=== PATIENT | male | born 1980 | race African-American/Black ===

== ENCOUNTER 2020-10-21 06:52 | Emergency (ER) | payer OTHER, SELFPAY ==
[2020-10-21 07:18] VITALS: BP 119/71; PULSE 86; RESP 16; TEMP 36.9; O2SAT 100; BMI 27.3
--- NOTE | 2020-10-21 07:54 | ED.URI ---
HPI - URI/Sore Throat General Chief Complaint: Upper Respiratory Symptoms Stated Complaint: strep throat Time Seen by Provider: 10/21/20 07:47 Source: patient Mode of arrival: ambulatory Limitations: no limitations History of Present Illness HPI Narrative: 40-year-old male who presents emergency department for evaluation of cough and sore throat. Patient has been sick for approximately 2 days. the patient has a cough which is productive of thick, green phlegm with occasional orange flex in the phlegm, also complaining of a sore throat. He states that he has a constant, sharp pain in his throat that is worse with coughing, has no difficulty swallowing, the pain in his throat is moderate in intensity. He states that he has a burning sensation in his chest which is worse with coughing and with breathing. He denies shortness of breath or dyspnea on exertion. He denies for myalgias or arthralgias. He states that he had a subjective fever at home. Patient states that his sore throat and cough have been very persistent was unable to work yesterday secondary to his symptoms. Related Data Previous Rx's Medication Instructions Recorded azithromycin [Zithromax Z-Lance] See Rx Instructions .ROUTE 10/21/20 .COMPLEX #6 tab Allergies Allergy/AdvReac Type Severity Reaction Status Date / Time amoxicillin [AMOXICILLIN] Allergy Unknown HIVES Verified 10/21/20 07:17 ibuprofen [IBUPROFEN] Allergy Unknown HIVES Verified 10/21/20 07:17 Review of Systems Review of Systems: Yes all other systems are reviewed and are negative Constitutional: Constitutional: Reports as per HPI Eyes: Eyes: Reports as per HPI ENT: Reports as per HPI Cardiovascular: Cardiovascular: Reports as per HPI Respiratory: Respiratory: Reports as per HPI Gastrointestinal: Gastrointestinal: Reports as per HPI Genitourinary: Genitourinary: Reports as per HPI Musculoskeletal: Musculoskeletal: Reports as per HPI Integumentary/Breasts: Skin/Breast: Reports as per HPI Neurologic: Reports as per HPI Psychiatric: Psychiatric: Reports as per HPI Allergic/Immunologic: Allergic/Immunologic: Reports as per HPI [facility] Past Medical History Attestation statement: The following information was validated with the patient. [facility] Narrative: Past medical history: Patient's born with hydrocephalus. 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 Denies tobacco use, he drinks alcohol occasionally, he denies drug use. Medical History No known health problems Social History Social History Alcohol intake: never Patient Tobacco Use Status: Never used Tobacco Use of substances other than those prescribed or required for medical reasons: No Advance Directives: No Advance Directives Information Provided: No Physical Exam Vital Signs: Vital Signs: Last Vital Signs Temp 98.5 F 10/21/20 07:18 Pulse 64 10/21/20 08:08 Resp 16 10/21/20 08:08 BP 122/78 10/21/20 08:08 Pulse Ox 100 10/21/20 08:08 Body Mass Index 27.3 Const: General: cooperative and healthy appearing Nutritional Appearance: average body habitus Orientation/consciousness: oriented to person and oriented to place Limitations: no limitations HENMT: Head: Yes normal to inspection, Yes normocephalic and Yes atraumatic Ears: external ears normal General nose exam: Normal external nose present Face and sinus: Yes normal facial exam Mouth: Normal oral and palatal mucosa present Throat: Yes tonsils normal, Yes uvula midline and Yes other ( Posterior erythema with exudates) Eyes: General: appearance normal, both eyes and all related structures Alignment and Position: alignment normal Periorbital: periorbital findings normal Eyelids: Yes eyelids normal Conjunctivae: conjunctivae normal Sclerae: sclerae normal Pupils: Equal, round and reactive pupils present Direct Ophthalmoscopy: normal light reflex Neck: Other: BP shunt tubing can be felt in the left neck, no adenopathy Neck: Yes normal visual inspection and Yes supple Thyroid: Thyroid normal Chest: Chest palpation & inspection: normal inspection of the chest and normal palpation of entire chest wall Resp: Effort & Inspection: normal respiratory effort and able to speak in complete sentences Auscultation: clear to auscultation bilaterally, no crackles, no rales and no rhonchi Cardio: Rate: regular rate Rhythm: regular rhythm Heart sounds: S1 normal heart sound present, S2 normal heart sound present and no murmurs GI: Inspection: Yes normal to inspection Palpation (GI): Soft to palpation, nontender and no guarding Auscultation: normal bowel sounds : General: Yes no CVA tenderness Back/Spine/Pelvis: Back: no CVA tenderness Cervical Spine: normal cervical lordosis Thoracic/Lumbar Spine: thoracic and lumbar spine normal to inspection Skin: General skin exam: no rashes or lesions noted Lesions: no lesions Rashes: no rashes Trauma: no lacerations or abrasions Neuro: General: oriented to person and oriented to place Cranial nerves: Yes CN's II-XII intact bilaterally and Yes Equal, round and reactive pupils present Cognition (Neuro): normal cognition Motor exam (neuro): 5/5 motor strength present throughout Extrem: Right upper extremity: normal to inspection and full ROM Psych: Appearance: grossly normal and well kempt Mental Status: mental status grossly normal Speech and movement: Normal speech and movement present Affect: normal affect Attitude: cooperative Thought process: Normal thought process present Thought content: Normal thought content present Insight: Good insight present (Psych) Judgement: Good judgement present (Psych) Course Course Course Narrative: 40-year-old male who presents emergency department for evaluation of sore throat, cough and chest pain. Vital signs were stable. Patient's presentation is consistent with acute pharyngitis and acute bronchitis. Patient will be treated with Zithromax. He was advised to take Tylenol and ibuprofen. The patient was given verbal and printed instructions prior to discharge. The patient was advised to follow-up with their PCP in 2 days and to return to the emergency department if their symptoms get worse or if they develop any new symptoms that are concerning to them . He was given a note not return until Tuesday. Discharge Plan Discharge Clinical Impression: Acute bronchitis, Acute bacterial pharyngitis Patient Disposition: Home, Self-Care Instructions: Pharyngitis (ED), Acute Bronchitis (ED) Additional Instructions: Your symptoms are consistent with a throat infection and infection of your bronchial tubes ( pharyngitis and bronchitis ). Take Zithromax Z-Lance as prescribed. Take ibuprofen 200 mg pills, 3 pills every 6 hours as needed for pain. Take Tylenol (acetaminophen) 500 mg pills, 2 pills every 4 to 6 hours as needed for pain. Follow-up with your doctor in 2 days. Please return to the emergency department if your symptoms get worse or if you develop any symptoms that are concerning to you. Prescriptions: New azithromycin [Zithromax Z-Lance] 250 mg tablet See Rx Instructions .ROUTE .COMPLEX Qty: 6 RF: 0 Stand Alone Forms: Work/School Release
[2020-10-21 08:02] VITALS: O2SAT 99
[2020-10-21 08:08] VITALS: BP 122/78; PULSE 64; RESP 16; O2SAT 100
== END 2020-10-21 08:49 | disposition home or self-care (01) ==
PROVIDERS: Emergency Provider Emergency Medicine Emergency Medical Services; PCP Internal Medicine Geriatric Medicine
DX: J20.9 Acute bronchitis, unspecified (principal); J02.8 Acute pharyngitis due to other specified organisms
CPT/HCPCS: 99283; 99285

== ENCOUNTER 2020-11-11 07:42 | Emergency (ER) | payer OTHER, SELFPAY ==
--- NOTE | ~2020-11-11 | XR_ITS ---
EXAMINATION: LUMBAR SPINE AND LEFT HIP. CLINICAL INFORMATION: Pain left hip and lumbar spine. COMPARISON: None TECHNIQUE: Lumbar spine 3 views. Left hip 2 views. FINDINGS: Left hip: There is maintained hip joint space. No bony erosive changes seen. No visible acute fracture or dislocation. The soft tissues are normal. Lumbar spine: There is normal lumbar lordosis. The vertebral heights, alignment and disc heights are normal. No visible acute fracture, dislocation or subluxation seen. The soft tissues are normal. XR/XR hip LT min 2V IMPRESSION: Unremarkable left hip exam. Unremarkable lumbar spine exam.
--- NOTE | ~2020-11-11 | XR_ITS ---
EXAMINATION: LUMBAR SPINE AND LEFT HIP. CLINICAL INFORMATION: Pain left hip and lumbar spine. COMPARISON: None TECHNIQUE: Lumbar spine 3 views. Left hip 2 views. FINDINGS: Left hip: There is maintained hip joint space. No bony erosive changes seen. No visible acute fracture or dislocation. The soft tissues are normal. Lumbar spine: There is normal lumbar lordosis. The vertebral heights, alignment and disc heights are normal. No visible acute fracture, dislocation or subluxation seen. The soft tissues are normal. XR/XR lumbar spine 2-3V IMPRESSION: Unremarkable left hip exam. Unremarkable lumbar spine exam.
--- NOTE | 2020-11-11 07:56 | ED_ITS ---
HPI - Back Pain/Injury General Chief Complaint: Extremity Problem Stated Complaint: Injury Time Seen by Provider: 11/11/20 07:56 Source: patient Mode of arrival: ambulatory Limitations: no limitations History of Present Illness HPI Narrative: left sided back pain, Patient is unsure how he injured his back. When he rolled over last night he developed sudden severe pain. MD elicited complaint: back pain Onset (ago): day(s) Timing: constant Exacerbating factors: movement Relieving factors: none Associated symptoms: denies other symptoms Related Data Previous Rx's Medication Instructions Recorded azithromycin [Zithromax Z-Lance] See Rx Instructions .ROUTE 10/21/20 .COMPLEX #6 tab cyclobenzaprine 10 mg PO TID #10 tab 11/11/20 naproxen [Naprosyn] 500 mg PO BID #20 tab 11/11/20 Allergies Allergy/AdvReac Type Severity Reaction Status Date / Time amoxicillin [AMOXICILLIN] Allergy Unknown HIVES Verified 10/21/20 07:17 ibuprofen [IBUPROFEN] Allergy Unknown HIVES Verified 10/21/20 07:17 Review of Systems Constitutional: Constitutional: Reports no additional constitutional complaints Eyes: Eyes: Reports no additional eye complaints ENT: Denies dizziness Cardiovascular: Cardiovascular: Reports no additional cardiovascular co mplaints Respiratory: Respiratory: Reports as per HPI Gastrointestinal: Gastrointestinal: Reports no additional gastrointestinal complaints Musculoskeletal: Musculoskeletal: Reports no additional musculoskeletal complaints Integumentary/Breasts: Skin/Breast: Denies rash Neurologic: Reports system reviewed and no additional complaints, except as documented, Denies dizziness and Denies Sensory deficit (Neuro) Psychiatric: Psychiatric: Denies anxiety [facility] Past Medical History Medical History No known health problems Social History Social History Alcohol intake: never Patient Tobacco Use Status: Never used Tobacco Advance Directives: Yes Advance Directives Information Provided: No Advance Directives on File: No Physical Exam Vital Signs: Vital Signs: Last Vital Signs Temp 98.0 F 11/11/20 07:58 Pulse 83 11/11/20 07:58 Resp 16 11/11/20 07:58 BP 115/79 11/11/20 07:58 Pulse Ox 98 11/11/20 07:58 Body Mass Index 32.1 Const: General: healthy appearing Nutritional Appearance: average body habitus Orientation/consciousness: oriented to person and patient oriented x3 Limitations: no limitations HENMT: Head: Yes normal to inspection Ears: external ears normal General nose exam: Normal external nose present Mouth: Normal oral and palatal mucosa present and oropharynx normal Throat: Yes posterior oropharynx normal Eyes: General: appearance normal, both eyes and all related structures Neck: Other: supple Neck: Yes normal visual inspection Chest: Chest palpation & inspection: normal inspection of the chest Resp: Auscultation: clear to auscultation bilaterally Cardio: Jugular venous distension: no JVD Rate: regular rate Rhythm: regular rhythm Heart sounds: S1 normal heart sound present and S2 normal heart sound present GI: Inspection: Yes normal to inspection Palpation (GI): Soft to palpation, nontender and No hepatosplenomegaly present Auscultation: normal bowel sounds Back/Spine/Pelvis: Other: Left SI tenderness, left iliac crest pain and insertion site Skin: General skin exam: no rashes or lesions noted Neuro: General: oriented to person and patient oriented x3 Cranial nerves: Yes CN's II-XII intact bilaterally Motor exam (neuro): 5/5 motor strength present throughout Sensory Exam: No Sensory deficit (Neuro) Extrem: General: Yes normal to inspection Psych: Appearance: grossly normal Course Reevaluation(s) Reevaluation #1: xrays are negative will treat for muscle spasm and strain Time: 09:05 [facility] - Back Pain/Injury Imaging Data hip: Radiologist's impression: IMPRESSION: Unremarkable left hip exam. Unremarkable lumbar spine exam. Discharge Plan Discharge Clinical Impression: Back strain Qualifiers: Encounter type: initial encounter Qualified Code(s): S39.012A - Strain of muscle, fascia and tendon of lower back, initial encounter Hip strain Qualifiers: Encounter type: initial encounter Laterality: left Qualified Code(s): S76.012A - Strain of muscle, fascia and tendon of left hip, initial encounter Patient Disposition: Home, Self-Care Instructions: Low Back Strain (ED) Prescriptions: New cyclobenzaprine 10 mg tablet 10 mg PO TID Qty: 10 RF: 0 naproxen [Naprosyn] 500 mg tablet 500 mg PO BID Qty: 20 RF: 0 No Action azithromycin [Zithromax Z-Lance] 250 mg tablet See Rx Instructions .ROUTE .COMPLEX Qty: 6 RF: 0 Referrals: Physician,None [Primary Care Provider] - 1 week Stand Alone Forms: Work/School Release
[2020-11-11 07:58] VITALS: BP 115/79; PULSE 83; RESP 16; TEMP 36.7; O2SAT 98; BMI 32.1
[2020-11-11] MEDS: Ketorolac Tromethamine 60 MG/2 ML VIAL IM (08:49)
[2020-11-11] MEDS: Cyclobenzaprine HCl 10 MG TABLET PO (08:50)
== END 2020-11-11 10:05 | disposition home or self-care (01) ==
PROVIDERS: Emergency Provider Emergency Medicine
DX: S39.012A Strain of muscle, fascia and tendon of lower back, initial encounter (principal); S76.012A Strain of muscle, fascia and tendon of left hip, initial encounter; X58.XXXA Exposure to other specified factors, initial encounter; Y93.9 Activity, unspecified; Y92.9 Unspecified place or not applicable; Y99.9 Unspecified external cause status
CPT/HCPCS: 72100; 73502; 96372; 99283; 99284; J1885

== ENCOUNTER 2021-01-05 13:07 | Emergency (ER) | payer OTHER, SELFPAY ==
--- NOTE | ~2021-01-05 | CT_ITS ---
EXAMINATION: CT SOFT TISSUE NECK WITHOUT CONTRAST CLINICAL INFORMATION: Neck pain. Shunt. COMPARISON: None TECHNIQUE: Helical imaging was performed in the axial plane with generation of coronal and sagittal reformatted images. This CT examination was performed using dose optimization techniques as appropriate, variously including the following: *Automated exposure control *Adjustment of mA and/or kV according to patient size (this includes techniques or standardized protocols for targeted exams where dose is matched to indication/reason for exam; i.e. extremities or head) *Use of iterative reconstruction technique DLP: 534 mGy-cm FINDINGS: There is a shunt seen in the right upper anterior chest, lateral neck and adjacent to the right side of the skull. The shunt appears interrupted or broken in multiple places. No fluid collection adjacent to the catheter is seen. Visualized intracranial structures are unremarkable. The shunt catheter in the brain is not seen. Orbits are normal appearing. There is membranous soft tissue thickening in the floor of the right maxillary sinus. There is a small polyp or cyst in the left maxillary sinus. There is prominent soft tissue seen in the naso and oropharynx. Discrete mass is not seen and this probably represents prominent adenoidal soft tissue. The epiglottis and vallecula are normal. The larynx is normal. The salivary glands are normal. The thyroid gland is normal. There is shotty cervical lymphadenopathy. There is biapical pleural thickening. Review of bone windows is unremarkable. CT/CT soft tissue neck wo con IMPRESSION: Broken shunt catheter seen in the right side of the neck and chest. No fluid collection around the catheters seen. Prominent soft tissue in the naso and oropharynx probably representing prominent adenoidal soft tissue.
[2021-01-05 14:26] VITALS: BP 147/111; PULSE 114; RESP 16; TEMP 36.1; O2SAT 98; BMI 27.3
--- NOTE | 2021-01-05 15:19 | ED_ITS ---
HPI - General Adult General Chief complaint: General Medical <STEPHANE Downs - Last Filed: 01/05/21 15:37> Stated complaint: HEMMRHOIDS <STEPHANE Downs Last Filed: 01/05/21 15:37> Time Seen by Provider: 01/05/21 15:19 <STEPHANE Downs - Last Filed: 01/05/21 15:37> Source: patient <STEPHANE Molina - Last Filed: 01/06/21 00:24> Mode of arrival: ambulatory <STEPHANE Molina - Last Filed: 01/06/21 00:24> History of Present Illness HPI narrative: 40-year-old male with a past medical history of GLUE MIXER shunt, hemorrhoids, presenting to the ED complaining of inflamed/painful hemorrhoid x2 days. States hemorrhoid popped now with bleeding when wiping/filling toilet bowl. Admits to similar symptoms in the past. Denies taking anticoagulation. Also requesting GLUE MIXER evaluation, reports believes shunt is broken x2 months. States no longer uses shunt, had a subsequent procedure after initial shunt placement which no longer requires shunt use. Denies headache, visual changes, nausea, vomiting, weakness, abdominal pain, lightheadedness/dizziness <STEPHANE Molina Last Filed: 01/06/21 00:24> Onset (ago): day(s) <STEPHANE Molina - Last Filed: 01/06/21 00:24> Related Data Home medications: Previous Rx's Medication Instructions Recorded azithromycin 250 mg tablet See Rx Instructions .ROUTE 10/21/20 (Zithromax Z-Lance) .COMPLEX #6 tab cyclobenzaprine 10 mg tablet 10 mg PO TID #10 tab 11/11/20 naproxen 500 mg tablet (Naprosyn) 500 mg PO BID #20 tab 11/11/20 hydrocortisone acetate 25 mg 25 mg [place] BEDTIME #12 ea 01/05/21 rectal suppository lidocaine 5 % topical cream 1 appl TOPICAL BID PRN #30 g 01/05/21 (Hemorrhoidal Relief) <STEPHANE Downs Last Filed: 01/05/21 15:37> Allergies/adverse reactions: Allergies Allergy/AdvReac Type Severity Reaction Status Date / Time amoxicillin [AMOXICILLIN] Allergy Unknown HIVES Verified 01/05/21 17:57 ibuprofen [IBUPROFEN] Allergy Unknown HIVES Verified 01/05/21 17:57 <STEPHANE Downs - Last Filed: 01/05/21 15:37> Review of Systems Review of Systems: Constitutional: No Fever, No Fatigue, No Malaise ENT/Mouth: No Hearing loss, No sore throat, No Rhinorrhea Eyes: No Eye Pain, No Swelling, No Vision Changes Cardiovascular: No Chest Pain, No SOB Respiratory: No Cough, No Dyspnea Gastrointestinal: No Nausea, No Vomiting, No Diarrhea, No Constipation, No Abdominal pain, +hemmorrhoid, +blood when wiping Genitourinary: No irregular bleeding, No Dysuria, No Hematuria, No Urinary Incontinence, No Flank Pain Musculoskeletal: +neck pain, No Myalgias, No Joint Swelling Skin: No Skin Lesions, No rash Neuro: No Weakness, No Numbness, No Paresthesias, No Loss of Consciousness, No Dizziness, No Headache <STEPHANE Molina - Last Filed: 01/06/21 00:24> Yes all other systems are reviewed and are negative <STEPHANE Molina - Last Filed: 01/06/21 00:24> Neurologic: Denies Abnormal speech present <STEPHANE Molina - Last Filed: 01/06/21 00:24> [facility] Past Medical History Attestation statement: The following information was validated with the patient. <STEPHANE Molina - Last Filed: 01/06/21 00:24> Medical History: Medical History No known health problems <STEPHANE Downs - Last Filed: 01/05/21 15:37> Social History Social History: Social History Alcohol intake: never Patient Tobacco Use Status: Never used Tobacco Advance Directives: Yes Advance Directives Information Provided: No Advance Directives on File: No <STEPHANE Downs Last Filed: 01/05/21 15:37> Physical Exam Vital Signs: Vital Signs: Last Vital Signs Temp 98 F 01/05/21 19:36 Pulse 75 01/05/21 19:36 Resp 16 01/05/21 19:36 BP 124/84 01/05/21 19:36 Pulse Ox 95 01/05/21 19:36 Body Mass Index 27.3 <STEPHANE Downs - Last Filed: 01/05/21 15:37> Vital Signs: Last Vital Signs Temp 98 F 01/05/21 19:36 Pulse 75 01/05/21 19:36 Resp 16 01/05/21 19:36 BP 124/84 01/05/21 19:36 Pulse Ox 95 01/05/21 19:36 Body Mass Index 27.3 <STEPHANE Molina - Last Filed: 01/06/21 00:24> Const: General: cooperative, healthy appearing, no acute distress, alert and awake <STEPHANE Molina - Last Filed: 01/06/21 00:24> Orientation/consciousness: patient oriented x3 <STEPHANE Molina - Last Filed: 01/06/21 00:24> Limitations: no limitations <STEPHANE Molina - Last Filed: 01/06/21 00:24> HENMT: Head: Yes normal to inspection <STEPHANE Molina - Last Filed: 01/06/21 00:24> Ears: hearing grossly normal bilaterally <STEPHANE Molina - Last Filed: 01/06/21 00:24> General nose exam: Normal external nose present <STEPHANE Molina - Last Filed: 01/06/21 00:24> Face and sinus: Yes normal facial exam <STEPHANE Molina - Last Filed: 01/06/21 00:24> Throat: Yes posterior oropharynx normal, Yes tonsils normal and Yes uvula midline <STEPHANE Molina - Last Filed: 01/06/21 00:24> Eyes: General: appearance normal, both eyes and all related structures <STEPHANE Molina - Last Filed: 01/06/21 00:24> Pupils: Equal, round and reactive pupils present <STEPHANE Molina - Last Filed: 01/06/21 00:24> EOM: EOMs intact bilaterally <STEPHANE Molina - Last Filed: 01/06/21 00:24> Neck: Other: palpable broken shunt noted to R neck. No overlying infection/cellulitis <STEPHANE Molina - Last Filed: 01/06/21:24> Neck: Yes normal visual inspection <Bridgette Campbell [place] - Last Filed: 01/06/21 00:24> Resp: Effort & Inspection: normal respiratory effort and no respiratory distress <Bridgette [place] - Last Filed: 01/06/21 00:24> Cardio: Rate: regular rate <Bridgette [place] - Last Filed: 01/06/21 00:24> Heart sounds: S1 normal heart sound present and S2 normal heart sound present <Bridgette [place] - Last Filed: 01/06/21:24> GI: Inspection: Yes normal to inspection <Bridgette [place] - Last Filed: 01/06/21:24> Palpation (GI): Soft to palpation, nontender, no guarding and not rigid <Bridgette [place] - Last Filed: 01/06/21:24> : Other: + red inflamed/prolapsed hemorrhoid noted. No evidence of thro mbosis. No evidence of cellulitis. Tender to palpation. <Bridgette [place] - Last Filed: 01/06/21:24> Skin: Rashes: no rashes <Bridgette [place] - Last Filed: 01/06/21:24> Wounds: no wounds <Bridgette [place] - Last Filed: 01/06/21:24> Neuro: General: patient oriented x3, gait normal, tone normal, moves all extremities, no focal motor deficits and CN's II-XI intact bilaterally <Bridgette Campbell [facility] Last Filed: 01/06/21 00:24> Cranial nerves: Yes CN's II-XII intact bilaterally and Yes Equal, round and reactive pupils present <Bridgette [place] - Last Filed: 01/06/21 00:24> Cognition (Neuro): normal cognition <Bridgette [place] - Last Filed: 01/06/21:24> Speech: No Abnormal speech present <Bridgette [place] - Last Filed: 01/06/21:24> Gait exam (Neuro): Normal gait present <Bridgette [place] - Last Filed: 01/06/21 00:24> Motor exam (neuro): 5/5 motor strength present throughout <STEPHANE Molina Last Filed: 01/06/21 00:24> Extrem: General: Yes normal to inspection <STEPHANE Molina Last Filed: 01/06/21 00:24> Course Course Course Narrative: 15pm - 40-year-old male presenting to the ED with possible hemorrhoids he reports that he had a lot of bloody discharge this morning and wants surgery. He also reports that he has a shunt to the right side of his neck and has been having pain from it and wants further evaluation treatment about this. Therefore patient was sent back to the waiting room for further evaluation and treatment to Emergency [facility] care. Soft tissue neck CT scan ordered at this time. <STEPHANE Downs Last Filed: 01/05/21 15:37> Reevaluation(s) Reevaluation #1: CT soft tissue neck wo con IMPRESSION: Broken shunt catheter seen in the right side of the neck and chest. No fluid collection around the catheters seen. Prominent soft tissue in the naso and oropharynx probably representing prominent adenoidal soft tissue. >> case discussed with Dr. Brizuela. Patient no longer needs shunt per patient sx been going on for 2 mos,, likely chronic, no need for neurosurgery eval at this time. No focal neuro deficits. Plan to follow-up with neurosurgery outpatient <STEPHANE Molina Last Filed: 01/06/21 00:24> Medical Decision Making MDM Narrative Medical decision making narrative: 40-year-old male with a past medical history of GLUE MIXER shunt, hemorrhoids, presenting to the ED complaining of inflamed/painful hemorrhoid x2 days. Also requesting GLUE MIXER shunt evaluation. On exam initially hypertensive, tachycardic likely from pain. Physical exam as above. No focal neuro deficits. No evidence of rectal bleeding, appreciable prolapsed hemorrhoid without evidence of thrombosis. Discussed with patient he is to follow-up with general surgery likely for hemorrhoidectomy. Also discussed with patient needs to follow-up with neuro surgery outpatient, this is likely chronic & patient no longer uses shunt <STEPHANE Molina Last Filed: 01/06/21 00:24> Discharge Plan Discharge Clinical Impression: Hemorrhoid prolapse, Mechanical complication of ventricular intracranial shunt <STEPHANE Downs Last Filed: 01/05/21 15:37> Patient Disposition: Home, Self-Care <STEPHANE Downs - Last Filed: 01/05/21 15:37> Instructions: Hemorrhoids (ED), Hemorrhoidectomy (DC) <STEPHANE Downs - Last Filed: 01/05/21 15:37> Additional Instructions: Your hemorrhoid is prolapse/inflamed. Lidocaine and hydrocortisone will help with inflammation/pain, apply as directed You need to follow-up with general surgery for your hemorrhoid Your shunt appears broken in her neck, you need to follow-up with your neurosurgeon. Also follow-up with [facility] neurosurgery If her symptoms persist or worsen, if constant worsening bleeding, develops abdominal pain, headache, weakness return to the ED <STEPHANE Downs - Last Filed: 01/05/21 15:37> Prescriptions: New lidocaine [Hemorrhoidal Relief] 5 % cream 1 appl topical BID PRN (Reason: pain) Qty: 30 RF: 0 hydrocortisone acetate 25 mg suppository 25 mg [place] BEDTIME Qty: 12 RF: 0 No Action azithromycin [Zithromax Z-Lance] 250 mg tablet See Rx Instructions .ROUTE .COMPLEX Qty: 6 RF: 0 cyclobenzaprine 10 mg tablet 10 mg PO TID Qty: 10 RF: 0 naproxen [Naprosyn] 500 mg tablet 500 mg PO BID Qty: 20 RF: 0 <STEPHANE Downs - Last Filed: 01/05/21 15:37> Referrals: Anil Macdonald MD [Physician] - 3 days (For your broken shunt. Call to make appointment) Cam Arguello MD [Physician] - 2 days (For hemorrhoids. General surgery) <STEPHANE Downs - Last Filed: 01/05/21 15:37> Stand Alone Forms: Work/School Release <STEPHANE Downs - Last Filed: 01/05/21 15:37> Interventions: ED Discharge Assessment Last Done: 01/05/21 19:43 <STEPHANE Downs - Last Filed: 01/05/21 15:37> Discharge Date/Time: 01/05/21 19:45 <STEPHANE Downs - Last Filed: 01/05/21 15:37>
--- NOTE | 2021-01-05 17:58 | PC.NURSE ---
pt states hemorrhoids bleeding. c/o pain in rectal area. hx hemorrhoids. also has concern about shunt. ct was done.
[2021-01-05 19:36] VITALS: BP 124/84; PULSE 75; RESP 16; TEMP 36.6; O2SAT 95
== END 2021-01-05 19:45 | disposition home or self-care (01) ==
PROVIDERS: Emergency Provider Emergency Medicine
DX: K64.8 Other hemorrhoids (principal); M54.2 Cervicalgia; Z79.899 Other long term (current) drug therapy
CPT/HCPCS: 70490; 99284

== ENCOUNTER → 2021-01-14 14:44 | Outpatient (BNVA) | payer OTHER, SELFPAY | PROVIDERS: Visit Provider Surgery | DX: K64.9 Unspecified hemorrhoids (principal) | CPT/HCPCS: 46600; 99202 ==

== ENCOUNTER 2021-02-10 08:27 | Day surgery (SDC) | payer OTHER, SELFPAY ==
[2021-02-04 14:40] VITALS: BMI 28.4
--- NOTE | 2021-02-09 10:35 | HO.ANESPROP2 ---
Documented by User: Tash Mario NP 02/09/21 10:36 HPI - Anesthesia Eval Consult details Narrative: 41yo M for EUA, Hemorrhoidectomy PMFSH Active Problems Active Problems: All Active Problems (Updated 02/04/21 @ 14:39 by Mckenna Blanca RN) Bleeding hemorrhoids (Acute) Past Medical History Medical History Bleeding hemorrhoids History of MRSA infection Hydrocephalus Surgical History Surgical History History of creation of ventriculoperitoneal shunt Social History Social History Are you a primary pet care worker to a significant other at home: No Do you presently have visiting nurse or other home services: No Alcohol intake: never Patient Tobacco Use Status: Current someday Tobacco user Tobacco use type: Cigarette Cigarettes Per Day: 5 Use of substances other than those prescribed or required for medical reasons: No Have you been hit, kicked, punched, or otherwise hurt by someone within the past year? If so, by whom?: No Are you DNR?: No Advance Directives: No Advance Directives Information Provided: Yes (informational brochure mailed) Advance Directives on File: No Recently lost weight without trying: No Eating poorly because of decreased appetite: No Nutrition Risks: No Nutritional Risk Poor oral hygiene: No Meds Allergies Allergy/AdvReac Type Severity Reaction Status Date / Time amoxicillin [AMOXICILLIN] Allergy Intermediate HIVES Verified 02/10/21 09:05 ibuprofen [IBUPROFEN] Allergy Intermediate HIVES Verified 02/10/21 09:05 Exam Exam Date and Time: February 09, 2021 1035 Height,Weight and Vital Signs: Height 5 ft 1 in Weight 68.2 kg Assessment and Plan Assessment Anesthesia Assessment: Chart Reviewed Documented by User: Amairani Riley MD 02/10/21 10:43 PMFSH Past Medical History Medical History Bleeding hemorrhoids History of MRSA infection Hydrocephalus Surgical History Surgical History History of creation of ventriculoperitoneal shunt History of Problems with Anesthesia: No Social History Social History Are you a primary pet care worker to a significant other at home: No Do you presently have visiting nurse or other home services: No Alcohol intake: never Patient Tobacco Use Status: Current someday Tobacco user Tobacco use type: Cigarette Cigarettes Per Day: 5 Use of substances other than those prescribed or required for medical reasons: No Have you been hit, kicked, punched, or otherwise hurt by someone within the past year? If so, by whom?: No Are you DNR?: No Advance Directives: No Advance Directives Information Provided: Yes (informational brochure mailed) Advance Directives on File: No Recently lost weight without trying: No Eating poorly because of decreased appetite: No Nutrition Risks: No Nutritional Risk Poor oral hygiene: No Meds Allergies Allergy/AdvReac Type Severity Reaction Status Date / Time amoxicillin [AMOXICILLIN] Allergy Intermediate HIVES Verified 02/10/21 09:05 ibuprofen [IBUPROFEN] Allergy Intermediate HIVES Verified 02/10/21 09:05 Exam Airway Mallampati Class: II TM Dist: >3cm Neck ROM: Full Heart: RRR Lungs: CTA Assessment and Plan Assessment Anesthesia Assessment: Anesthesia Plan Discussed Final Anesthetic Review History of Problems with Anesthesia: No NPO: Yes ASA Class: II Final Preanesthetic Review: Meds/Allgs Chart Reviewed, Consent Obtained/Reviewed and Anes Risks/Benef Reviewed Patient Risk: Low Procedure Risk: Intermediate Anesthetic Plan Anesthetic Plan: GA Disposition: Standard PACU
[2021-02-10] VITALS (19 sets, daily range): BP systolic 113–146; BP diastolic 60–101; PULSE 68–93; RESP 11–18; TEMP 36.1–36.6; O2SAT 89–100
[2021-02-10] MEDS: Lactated Ringers 1,000 ML 100 ML IVCONT (09:25)
--- NOTE | 2021-02-10 09:53 | MHC.SHP ---
Pre-Procedural Eval Section A Date of Service: 02/10/21 Section B Chief Complaint: Bleeding hemorrhoids Allergies: Allergies Allergy/AdvReac Type Severity Reaction Status Date / Time amoxicillin [AMOXICILLIN] Allergy Intermediate HIVES Verified 02/10/21 09:05 ibuprofen [IBUPROFEN] Allergy Intermediate HIVES Verified 02/10/21 09:05 Plan I have reviewed the history and physical and performed a pertinent physical examination on my patient. No changes have occurred unless specified.
--- NOTE | 2021-02-10 10:51 | W.PM.OPN ---
Operative Note Operative Note Date of Service: 02/10/21 Narrative: Preop diagnosis: Bleeding hemorrhoids Postop diagnosis: Bleeding hemorrhoids, internal and external Procedure: Exam under anesthesia, hemorrhoidectomy x1 column Surgeon: Cam Arguello MD Patient is a 41-year-old male was seen in the office because of chronic problems with bleeding hemorrhoids. He said that this had been severe the past few months. Examination in the office revealed what appeared to be very inflamed, erythematous, moderate size hemorrhoidal column involving the distal anoderm all the way to the dentate line. This appeared to be the likely source of his bleeding He understood technique of hemorrhoidectomy as well as the risks, benefits, and alternatives. He was brought to the operating room placed in prone enrique-knife position under general anesthesia via endotracheal tube. The buttocks were retracted with wide tape laterally. The perianal area was prepped and draped in the usual sterile fashion. A surgical time-out was done. The patient received Cefotan 2 g IV preoperatively. Examination of the anal orifice revealed what appeared to be a prolapsing hemorrhoidal column on the left side, very erythematous looking and appeared to bleed easily I inserted the Mino Acevedo retractor and examined the anal canal circumferentially. Again this hemorrhoidal column was noted on the left side, extending from just proximal to the dentate line all the way to the distal anoderm. There were no other lesions. There was no fissure. There was no induration in the anal canal. I applied a Weir grasper at this hemorrhoidal column to retract this. I made a wwahwe-dr-zmwki stitch at the pedicle using chromic 3-0. I made an incision around this hemorrhoidal column to the perianal skin using blade 15. I excised this hemorrhoidal column above the plane of the sphincters along this incision using Metzenbaum scissors. This specimen was sentfor pathology. I closed this incision with a running chromic 3-0 stitch. Additional hemostatic [id number] sutures were placed. We observed for hemostasis. Once hemostasis was ensured, I proceeded to then infiltrate the perianal area with Marcaine 0.5% for postop analgesia. The procedure was then completed The patient tolerated procedure well. There were no complications noted. Initial and final counts of sponges and instruments were correct. Estimated blood loss about 20 cc. The patient was extubated without difficulty and transferred to recovery room with stable vital signs.
--- NOTE | 2021-02-10 10:56 | PM.OP ---
Brief Operative Note Date of Service: 02/10/21 Pre-op diagnosis: Bleeding hemorrhoids Post-op diagnosis: same Procedure: Exam under anesthesia, hemorrhoidectomy Surgeon: Cam Arguello MD Anesthesia: GETA Was an Cinder Crane Operator used for this Procedure?: No Estimated blood loss (mL): 20 Pathology: other (Hemorrhoids) Condition: stable Disposition: PACU
[2021-02-10] MEDS: fentaNYL citrate/PF 100 MCG/2 ML VIAL 50 MCG IVPUSH (11:19)
[2021-02-10] MEDS: oxyCODONE HCl Immed Release 5 MG TABLET 10 MG PO (11:22)
[2021-02-10] MEDS: fentaNYL citrate/PF 100 MCG/2 ML VIAL 25 MCG IVPUSH (12:18)
== END 2021-02-10 14:50 | disposition home or self-care (01) ==
PROVIDERS: Visit Provider Surgery
PROC: (CPT 46255; principal; 2021-02-10 10:00)
DX: K64.8 Other hemorrhoids (principal); K64.4 Residual hemorrhoidal skin tags; K62.89 Other specified diseases of anus and rectum; Z79.899 Other long term (current) drug therapy; Z88.0 Allergy status to penicillin; Z88.8 Allergy status to other drugs, medicaments and biological substances
CPT/HCPCS: 46255; 88304; J1100; J2250; J2405; J3010

== ENCOUNTER → 2021-03-10 15:40 | Outpatient (BNVA) | payer OTHER, SELFPAY | PROVIDERS: Visit Provider Surgery | DX: Z48.815 Encounter for surgical aftercare following surgery on the digestive system (principal); Z87.19 Personal history of other diseases of the digestive system | CPT/HCPCS: 99212 ==

== ENCOUNTER 2021-06-16 15:12 | Emergency (ER) | payer OTHER, SELFPAY ==
[2021-06-16 17:04] VITALS: BP 173/112; PULSE 110; RESP 18; TEMP 36.8; O2SAT 97; BMI 24.5
--- NOTE | 2021-06-16 20:08 | ED.GENADULT ---
HPI - General Adult General Chief complaint: General Medical Stated complaint: Neck issues Time Seen by Provider: 06/16/21 17:39 Source: patient Mode of arrival: ambulatory Limitations: no limitations History of Present Illness HPI narrative: 41-year-old male who presents emergency department for evaluation of pain in his right neck. Patient states that he was born with hydrocephalus and had a SUPERVISOR LIQU[employer] shunt placed at [facility]. He states that he had multiple revisions the SUPERVIS[employer] shunt. He states that 20 years ago he had some type of procedure was told that he no longer needed the BP shunt. The patient states that in December of 2020 he noted a destruction of the SUPERVIS[employer] shunt tubing in his right neck. He was seen here in the emergency department on 01/05/[address] scan soft tissue of the neck and the following findings were noted regarding the SUPERVISOR [employer] YE[employer] shunt tube: There is a shunt seen in the right upper anterior chest, lateral neck and adjacent to the right side of the skull. The shunt appears interrupted or broken in multiple places. No fluid collection adjacent to the catheter is seen. The patient was referred to [facility] neuro surgery however he never kept a follow-up appointment. The patient states that over the past month he has been having pain in the right side of his neck. He states that the pain is intermittent. The pain mainly occurs after this heavy boxes at work. He states the pain is intermittent, sharp pain which is moderate to severe in intensity, worse with movement. He denied headache, lightheadedness, dizziness, nausea, vomiting, numbness or weakness associated with his neck pain. The patient states he has not been able to work over the past 3-4 day secondary to his neck pain. MD complaint: Right-sided neck pain Onset (ago): month(s) (1) Location: right (Neck) Radiation: non-radiation Severity: severe Severity scale (1-10): 8 Quality: aching and sharp Pain Consistency: intermittent Relieving factors: none Exacerbating factors: other (Lifting boxes at work) Associated symptoms: denies other symptoms Treatments prior to arrival: none Related Data Previous Rx's Medication Instructions Recorded hydrocortisone acetate 25 mg 25 mg [place] BEDTIME #12 ea 01/05/21 rectal suppository lidocaine 5 % topical cream 1 appl TOPICAL BID PRN #30 g 01/05/21 (Hemorrhoidal Relief) ibuprofen 600 mg tablet 600 mg PO Q6H PRN #30 tab 02/10/21 oxycodone-acetaminophen 5 mg-325 1 tab PO Q4-6H PRN #30 tab 02/10/21 mg tablet (Percocet) docusate sodium 100 mg capsule 100 mg PO BID #60 cap 02/11/21 (Colace) acetaminophen 500 mg tablet 1,000 mg PO Q6H PRN #30 tab 06/16/21 (Acetaminophen Extra Strength) cyclobenzaprine 10 mg tablet 10 mg PO TID PRN #20 tab 06/16/21 Allergies Allergy/AdvReac Type Severity Reaction Status Date / Time amoxicillin [AMOXICILLIN] Allergy Intermediate HIVES Verified 03/10/21 15:48 ibuprofen [IBUPROFEN] Allergy Intermediate HIVES Verified 03/10/21 15:48 Review of Systems Review of Systems: Yes all other systems are reviewed and are negative [facility] Past Medical History Medical History Bleeding hemorrhoids History of MRSA infection Hydrocephalus Hydrocephalus Surgical History History of creation of ventriculoperitoneal shunt History of hemorrhoidectomy Social History Social History Are you a primary medicare specialist to a significant other at home: No Do you presently have visiting nurse or other home services: No Alcohol intake: never Patient Tobacco Use Status: Current someday Tobacco user Tobacco use type: Cigarette Cigarettes Per Day: 5 Advance Directives: No Advance Directives Information Provided: No Physical Exam ED Vital Signs: Vital Signs - 24 hr 06/16/21 17:04 Temperature 98.2 F Pulse Rate 110 H Respiratory Rate 18 Blood Pressure 173/112 H Pulse Oximetry 97 BMI result Body Mass Index 24.5 Const General: cooperative and no acute distress Orientation/consciousness: oriented to person and oriented to place Limitations: no limitations HENMT Head: Yes normal to inspection, Yes normocephalic and Yes atraumatic Ears: external ears normal General nose exam: Normal external nose present Face and sinus: Yes normal facial exam Mouth: Normal oral and palatal mucosa present Throat: Yes posterior oropharynx normal Eyes General: appearance normal, both eyes and all related structures Pupils: Equal, round and reactive pupils present Neck Other: The patient does have a SUPERVISOR LIQU[employer] YE[employer] shunt noted on the right side of his neck, there is a 2 cm section which appears to be collapsed and then after this collapse section the tube is again palpable. He also has tenderness palpation of his trapezius muscles and sternocleidomastoid muscles on the right side of his neck with no spasm. Has full range of motion of his neck with no limitations. There is no mask, erythema or increased warmth noted over the SUPERVISOR LIQU[employer] YE[employer] shunt. Chest Chest palpation & inspection: normal inspection of the chest and normal palpation of entire chest wall Resp Effort & Inspection: normal respiratory effort and able to speak in complete sentences Auscultation: clear to auscultation bilaterally Cardio Rate: regular rate Rhythm: regular rhythm Heart sounds: S1 normal heart sound present, S2 normal heart sound present and no murmurs GI Inspection: Yes normal to inspection Palpation (GI): Soft to palpation, nontender and no guarding Auscultation: normal bowel sounds General: Yes no CVA tenderness Back/Spine/Pelvis Back: no CVA tenderness Skin General skin exam: no rashes or lesions noted Neuro General: oriented to person and oriented to place Cranial nerves: Yes CN's II-XII intact bilaterally and Yes Equal, round and reactive pupils present Cognition (Neuro): normal cognition Motor exam (neuro): 5/5 motor strength present throughout Extrem General: Yes normal to inspection Psych Appearance: grossly normal Speech and movement: Normal speech and movement present Affect: normal affect Attitude: cooperative Thought process: Normal thought process present Thought content: Normal thought content present Course Course Course Narrative: 41-year-old male who presents emergency department for evaluation of intermittent right-sided neck pain x1 month. He was also seen here on 01/05/2021 with similar complaint and was noted to have multiple breaks in his SUPERVISOR LIQU[employer] YE[employer] shunt on a CT scan of the soft tissue of the neck. The patient was supposed to follow up with [facility] neuro surgery but he never kept this follow-up appointment. The patient does state that 20 years ago he had some type of procedure and was told that he no longer needed the SUPERVIS[employer] shunt but he cannot give me any more details about what this procedure entailed. Patient's examination does reveal tenderness with palpation of the muscles of the right side of his neck and at this time I believe his pain is not related to this fraction of the SUPERVIS[employer] shunt. The patient is not having any concerning symptoms like headache, lightheadedness, dizziness, numbness or weakness. The patient will be treated with Tylenol and Flexeril. He was given the number to the neurosurgery clinic at [facility] advised to contact them for a follow-up appointment to determine if he needs the SUPERVISOR LIQU[employer] YE[employer] shunt your any further treatment. He was also advised to follow-up with his PCP. He was given a work note as well. Discharge Plan Discharge Clinical Impression: Acute neck pain, S/P SUPERVISOR LIQUID YE[employer] shunt Patient Disposition: Home, Self-Care Instructions: Acute Neck Pain (ED) Additional Instructions: At this time, I do not think that your neck pain is related to the broken SUPERVISOR LIQU[employer] YE[employer] shunt in the right side of her neck and is probably related to muscle strain from lifting at work. It is important that you follow-up with the neurosurgeons at [facility] to determine if you need any revision of your shunt. The following number is to the neurosurgery clinic at [facility], . Call them tomorrow to make a follow-up appointment to evaluate your shunt. The shunt is broken, please see the findings from CT soft tissue of the neck report below which was done December of 2020. Take Tylenol (acetaminophen) 500 mg pills, 2 pills ever 4 to 6 hours as needed for pain. Take Flexeril (cyclobenzaprine) 10 mg pills, 1 pill every 6-8 hours as needed for pain or spasm. This medication will make you sleepy. Do not drive or work while taking this medication. Please see work note You had a CT scan of the soft tissue of your neck on 01/05/2021. Below are the findings from the radiology report. The report does confirm that the shunt in the right side of your neck is broken into multiple pieces. There is a shunt seen in the right upper anterior chest, lateral neck and adjacent to the right side of the skull. The shunt appears interrupted or broken in multiple places. No fluid collection adjacent to the catheter is seen. Please see the work note. Prescriptions: New cyclobenzaprine 10 mg tablet 10 mg PO TID PRN (Reason: muscle pain or spasm) Qty: 20 0RF acetaminophen [Acetaminophen Extra Strength] 500 mg tablet 1,000 mg PO Q6H PRN (Reason: pain) Qty: 30 0RF No Action docusate sodium [Colace] 100 mg capsule 100 mg PO BID Qty: 60 2RF lidocaine [Hemorrhoidal Relief] 5 % cream 1 appl topical BID PRN (Reason: pain) Qty: 30 0RF hydrocortisone acetate 25 mg suppository 25 mg NM BEDTIME Qty: 12 0RF ibuprofen 600 mg tablet 600 mg PO Q6H PRN (Reason: pain) Qty: 30 0RF oxycodone-acetaminophen [Percocet] 5-325 mg tablet 1 tab PO Q4-6H PRN (Reason: pain) Qty: 30 0RF Stand Alone Forms: Work/School Release
[2021-06-16 20:47] VITALS: BP 126/80; PULSE 80; RESP 16; O2SAT 97
== END 2021-06-16 20:48 | disposition home or self-care (01) ==
PROVIDERS: Emergency Provider Emergency Medicine Emergency Medical Services; PCP Internal Medicine Geriatric Medicine
DX: M54.2 Cervicalgia (principal); G91.9 Hydrocephalus, unspecified; Z98.2 Presence of cerebrospinal fluid drainage device; F17.200 Nicotine dependence, unspecified, uncomplicated
CPT/HCPCS: 99283; 99284

== ENCOUNTER 2021-07-12 02:02 | Emergency (ER) | payer OTHER, SELFPAY ==
--- NOTE | ~2021-07-12 | XR_ITS ---
EXAMINATION: XR HIP, LEFT CLINICAL INFORMATION: Fall. COMPARISON: None TECHNIQUE: Two views of the left hip. Frontal view of the pelvis. FINDINGS: No fracture or dislocation. The hips are well aligned. Joint spaces are maintained. The pelvic rim is intact. Normal bowel gas pattern. XR/XR hip LT min 2V IMPRESSION: Normal left hip.
[2021-07-12 02:12] VITALS: BP 155/100; PULSE 98; O2SAT 100
--- NOTE | 2021-07-12 02:21 | ED.BACK ---
HPI - Back Pain/Injury General Chief Complaint: Fall Stated Complaint: lower back pain Time Seen by Provider: 07/12/21 02:20 Source: patient Mode of arrival: ambulatory Limitations: no limitations History of Present Illness HPI Narrative: Patient was walking and slipped and fell landed on his left hip complaining of pain in left hip able to ambulate asking for x-ray as he think it is fractured no other injury Related Data Previous Rx's Medication Instructions Recorded hydrocortisone acetate 25 mg 25 mg [place] BEDTIME #12 ea 01/05/21 rectal suppository lidocaine 5 % topical cream 1 appl TOPICAL BID PRN #30 g 01/05/21 (Hemorrhoidal Relief) ibuprofen 600 mg tablet 600 mg PO Q6H PRN #30 tab 02/10/21 oxycodone-acetaminophen 5 mg-325 1 tab PO Q4-6H PRN #30 tab 02/10/21 mg tablet (Percocet) docusate sodium 100 mg capsule 100 mg PO BID #60 cap 02/11/21 (Colace) acetaminophen 500 mg tablet 1,000 mg PO Q6H PRN #30 tab 06/16/21 (Acetaminophen Extra Strength) cyclobenzaprine 10 mg tablet 10 mg PO TID PRN #20 tab 06/16/21 Allergies Allergy/AdvReac Type Severity Reaction Status Date / Time amoxicillin [AMOXICILLIN] Allergy Intermediate HIVES Verified 03/10/21 15:48 ibuprofen [IBUPROFEN] Allergy Intermediate HIVES Verified 03/10/21 15:48 Review of Systems Review of Systems: Yes all other systems are reviewed and are negative PMFSH Past Medical History Medical History Bleeding hemorrhoids History of MRSA infection Hydrocephalus Hydrocephalus Surgical History History of creation of ventriculoperitoneal shunt History of hemorrhoidectomy Social History Social History Are you a primary assisted living care manager to a significant other at home: No Do you presently have visiting nurse or other home services: No Alcohol intake: never Patient Tobacco Use Status: Current someday Tobacco user Tobacco use type: Cigarette Cigarettes Per Day: 5 Advance Directives: No Physical Exam Vital Signs: Vital Signs: Last Vital Signs Temp 97.7 F 07/12/21 02:36 Pulse 105 H 07/12/21 02:36 Resp 18 07/12/21 02:36 BP 160/94 H 07/12/21 02:36 Pulse Ox 99 07/12/21 02:36 BMI result Body Mass Index 26.4 Appearance: Alert. Oriented X3. No acute distress. ENT: Pharynx normal. Oral Mucosa moist Neck: Normal inspection. Neck supple. CVS: Normal heart rate and rhythm. Pulses normal. Respiratory: No respiratory distress. Abdomen: Soft and nontender. Bowel sounds are present, Skin: Skin warm and dry. Normal skin color. Normal skin turgor. Extremities: Soft tissue tenderness left iliac crest good range of left hip movements able to walk without significant discomfort no spinal tenderness Neuro: Oriented X 3. No motor deficit. MDM - Back Pain/Injury MDM Narrative Medical decision making narrative: X-ray negative for fracture patient ambulated will discharge patient home for left hip contusion Discharge Plan Discharge Clinical Impression: Contusion of hip, left Patient Disposition: Home, Self-Care Instructions: Hip Contusion (ED) Additional Instructions: Take Tylenol/ibuprofen for pain Prescriptions: No Action docusate sodium [Colace] 100 mg capsule 100 mg PO BID Qty: 60 2RF lidocaine [Hemorrhoidal Relief] 5 % cream 1 appl topical BID PRN (Reason: pain) Qty: 30 0RF hydrocortisone acetate 25 mg suppository 25 mg [place] BEDTIME Qty: 12 0RF ibuprofen 600 mg tablet 600 mg PO Q6H PRN (Reason: pain) Qty: 30 0RF oxycodone-acetaminophen [Percocet] 5-325 mg tablet 1 tab PO Q4-6H PRN (Reason: pain) Qty: 30 0RF cyclobenzaprine 10 mg tablet 10 mg PO TID PRN (Reason: muscle pain or spasm) Qty: 20 0RF acetaminophen [Acetaminophen Extra Strength] 500 mg tablet 1,000 mg PO Q6H PRN (Reason: pain) Qty: 30 0RF
[2021-07-12 02:36] VITALS: BP 160/94; PULSE 105; RESP 18; TEMP 36.5; O2SAT 99; BMI 26.4
== END 2021-07-12 03:39 | disposition home or self-care (01) ==
PROVIDERS: Emergency Provider Internal Medicine
DX: S70.02XA Contusion of left hip, initial encounter (principal); W01.0XXA Fall on same level from slipping, tripping and stumbling without subsequent striking against object, initial encounter; Y93.9 Activity, unspecified; Y92.9 Unspecified place or not applicable; Y99.9 Unspecified external cause status
CPT/HCPCS: 73502; 99284

== ENCOUNTER 2021-08-14 11:47 | Outpatient (REF) | payer OTHER, SELFPAY ==
[2021-08-14 12:00] LABS: MANUAL DIFF FLAG NO
[2021-08-14 12:26] LABS: Basophils Percent Auto 0.6 % (0-2); Eosinophils Absolute Auto 0.1 X10*3/uL (0.0-0.4); Eosinophils Percent Auto 2.1 % (0-4); Hematocrit 42.4 % (42.0-52.0); Hemoglobin 13.4 g/dl (14.0-18.0); Imm Gran Abs Auto 0.01 X10*3/uL (0.00-0.03); Imm Gran Pct Auto 0.2 % (0.0-0.4); Lymphocytes Absolute Auto 2.2 X10*3/uL (1.2-4.9); Lymphocytes Percent Auto 45.8 % (20-40); Mean Corpuscular HGB Conc 31.6 g/dl (31.0-36.0); Mean Corpuscular Hemoglobin 26.6 pg (27.0-33.0); Mean Corpuscular Volume 84.1 fL (80.0-98.0); Mean Platelet Volume 9.8 fL (9.4-12.4); Monocytes Absolute Auto 0.4 X10*3/uL (0.1-1.2); Monocytes Percent Auto 8.3 % (2-11); Neutrophils Absolute Auto 2.1 x10*3/uL (2.0-8.3); Platelet Count 369 X10*3/uL (160-400); Red Blood Count 5.04 X10*6/uL (4.60-5.80); Red Cell Distribution Width 12.8 % (11.0-16.0); White Blood Count 4.8 X10*3/uL (4.8-10.8)
[2021-08-14 12:47] LABS: Alanine Aminotransferase 10 U/L (0-40); Albumin Level 4.8 g/dL (3.5-5.0); Alkaline Phosphatase 77 U/L (39-117); Anion Gap 11 (12-20); Aspartate Amino Transferase 16 U/L (5-37); Bilirubin Total 0.8 mg/dL (0.0-1.0); Blood Urea Nitrogen 19 mg/dL (9-16); Calcium 10.5 mg/dL (8.4-10.2); Carbon Dioxide 30 mmol/L (22-29); Chloride 100 mmol/L (96-108); Cholesterol 235 mg/dL; Estimated Glomerular Filt Rate > 60; Glucose Fasting 97 mg/dL (60-99); HDL Cholesterol 57 mg/dL; LDL Cholesterol Calculated 165 mg/dl; Potassium 4.7 mmol/L (3.3-5.1); Sodium 136 mmol/L (135-145); Triglycerides 69 mg/dL
== END 2021-08-14 11:48 | disposition home or self-care (01) ==
LOC: HO.LAB 11:47
PROVIDERS: PCP Internal Medicine Medical Oncology; Visit Provider Internal Medicine Medical Oncology
DX: Z12.5 Encounter for screening for malignant neoplasm of prostate (principal); N40.0 Benign prostatic hyperplasia without lower urinary tract symptoms; E66.3 Overweight
CPT/HCPCS: 36415; 80053; 80061; 84153; 85025

== ENCOUNTER 2021-09-04 18:52 | Emergency (ER) | payer OTHER, SELFPAY ==
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
[2021-09-04 19:13] VITALS: BP 147/84; BP 170/100; PULSE 120; PULSE 130; RESP 15; TEMP 37; O2SAT 97; BMI 27.6
[2021-09-04 19:22] VITALS: PULSE 120
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
[2021-09-04 20:07] VITALS: BP 127/99; PULSE 121; RESP 17; TEMP 37; O2SAT 99
--- NOTE | 2021-09-04 20:07 | PC.NURSE ---
Pt refused EKG @2006
[2021-09-04 21:03] VITALS: PULSE 111; O2SAT 97
--- NOTE | 2021-09-04 21:03 | PC.NURSE ---
Pt anxious to go home Pt refusing to wait for d/c papers PA, aware
== END 2021-09-04 21:58 | disposition home or self-care (01) ==
PROVIDERS: Emergency Provider Internal Medicine
DX: Z04.1 Encounter for examination and observation following transport accident (principal); G89.11 Acute pain due to trauma; M25.551 Pain in right hip; M54.50 Low back pain, unspecified; R07.89 Other chest pain
CPT/HCPCS: 70450; 71250; 72125; 73502; 74176; 99284

== ENCOUNTER 2021-10-09 12:48 | Outpatient (REF) | payer OTHER, SELFPAY ==
--- NOTE | ~2021-10-09 | XR_ITS ---
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 COMPARISON: CT brain 09/04/2021. TECHNIQUE: Skull 4 views, chest 2 views and KUB one view. FINDINGS: Skull: There is a right occipital shunt catheter visualized. On lateral view. No ventriculostomy tube is visualized unless it is a Silastic nonopaque catheter. On recent CT brain 09/04/2021, no ventriculostomy catheter was visualized. Visualized paranasal sinuses and mastoid air cells are well-aerated. There is no calvarial abnormality. CHEST: The lungs are expanded and clear. The heart size and pulmonary vascularity is seen. There is a ventricular peritoneal shunt catheter traversing the right neck and right chest which is severed at several sections through the neck. No gross bony abnormality. KUB: The bowel gas pattern is nonspecific with scattered stool in the colon. No organomegaly. There is a catheter terminating in the left epigastric region which traverses the anterior chest wall and upper abdomen. There is no organomegaly. No gross bony abnormality. XR/XR skull min 4V IMPRESSION: The right remnant of the ventricular peritoneal shunt catheter is seen extending from the right occipital region through the anterolateral neck, anterior chest wall into the left epigastric region. The catheter appears severed in several sections in the right neck. Also, there is no intracranial ventriculostomy segment seen. This is not visualized on the CT brain from 09/04/2021 either. The lungs are clear. The KUBs unremarkable.
--- NOTE | ~2021-10-09 | XR_ITS ---
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 COMPARISON: CT brain 09/04/2021. TECHNIQUE: Skull 4 views, chest 2 views and KUB one view. FINDINGS: Skull: There is a right occipital shunt catheter visualized. On lateral view. No ventriculostomy tube is visualized unless it is a Silastic nonopaque catheter. On recent CT brain 09/04/2021, no ventriculostomy catheter was visualized. Visualized paranasal sinuses and mastoid air cells are well-aerated. There is no calvarial abnormality. CHEST: The lungs are expanded and clear. The heart size and pulmonary vascularity is seen. There is a ventricular peritoneal shunt catheter traversing the right neck and right chest which is severed at several sections through the neck. No gross bony abnormality. KUB: The bowel gas pattern is nonspecific with scattered stool in the colon. No organomegaly. There is a catheter terminating in the left epigastric region which traverses the anterior chest wall and upper abdomen. There is no organomegaly. No gross bony abnormality. XR/XR chest 2V IMPRESSION: The right remnant of the ventricular peritoneal shunt catheter is seen extending from the right occipital region through the anterolateral neck, anterior chest wall into the left epigastric region. The catheter appears severed in several sections in the right neck. Also, there is no intracranial ventriculostomy segment seen. This is not visualized on the CT brain from 09/04/2021 either. The lungs are clear. The KUBs unremarkable.
--- NOTE | ~2021-10-09 | XR_ITS ---
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 COMPARISON: CT brain 09/04/2021. TECHNIQUE: Skull 4 views, chest 2 views and KUB one view. FINDINGS: Skull: There is a right occipital shunt catheter visualized. On lateral view. No ventriculostomy tube is visualized unless it is a Silastic nonopaque catheter. On recent CT brain 09/04/2021, no ventriculostomy catheter was visualized. Visualized paranasal sinuses and mastoid air cells are well-aerated. There is no calvarial abnormality. CHEST: The lungs are expanded and clear. The heart size and pulmonary vascularity is seen. There is a ventricular peritoneal shunt catheter traversing the right neck and right chest which is severed at several sections through the neck. No gross bony abnormality. KUB: The bowel gas pattern is nonspecific with scattered stool in the colon. No organomegaly. There is a catheter terminating in the left epigastric region which traverses the anterior chest wall and upper abdomen. There is no organomegaly. No gross bony abnormality. XR/XR KUB IMPRESSION: The right remnant of the ventricular peritoneal shunt catheter is seen extending from the right occipital region through the anterolateral neck, anterior chest wall into the left epigastric region. The catheter appears severed in several sections in the right neck. Also, there is no intracranial ventriculostomy segment seen. This is not visualized on the CT brain from 09/04/2021 either. The lungs are clear. The KUBs unremarkable.
== END 2021-10-09 12:49 | disposition home or self-care (01) ==
LOC: HO.XRAY 12:48
PROVIDERS: PCP Internal Medicine Medical Oncology; Visit Provider Internal Medicine Medical Oncology
DX: T85.09XA Other mechanical complication of ventricular intracranial (communicating) shunt, initial encounter (principal); Z98.2 Presence of cerebrospinal fluid drainage device
CPT/HCPCS: 70260; 71046; 74018

== ENCOUNTER 2021-10-14 12:32 | Outpatient (REF) | payer OTHER, SELFPAY ==
--- NOTE | ~2021-10-14 | CT_ITS ---
EXAMINATION: CT HEAD WITHOUT CONTRAST CLINICAL INFORMATION: CSF fluid drainage. COMPARISON: None TECHNIQUE: Contiguous axial imaging was performed from the skull base to vertex without intravenous administration of contrast. This CT examination was performed using dose optimization techniques as appropriate, variously including the following: *Automated exposure control *Adjustment of mA and/or kV according to patient size (this includes techniques or standardized protocols for targeted exams where dose is matched to indication/reason for exam; i.e. extremities or head) *Use of iterative reconstruction technique DLP: 731 mGy-cm FINDINGS: There is no acute intra-axial, extra-axial bleed, masses, collection or midline shift. There is a hypodensity in the right frontal lobe likely focal encephalomalacia likely related to a right frontal ventriculostomy tract extending to right frontal horn. No shunt is seen at this time. There is no acute infarction evolution. No edema. The lateral ventricles are symmetrical but enlarged. Periventricular white matter is preserved. Bone windows reveal a right frontal megha hole likely from previous ventriculostomy placement. There is no visible calvarial fracture. No scalp soft tissue abnormality. Bilateral paranasal sinuses are well aerated with a small polyp or retention cyst in the left maxillary sinus. The rest of the paranasal sinuses and mastoid air cells are well aerated. CT/CT head/brain wo con IMPRESSION: No acute intracranial process seen. There is a right frontal megha hole and a ventriculostomy tract extending to the right frontal horn with encephalomalacia surrounding the tract in the right frontal lobe. Small polyp or retention cyst in the left maxillary sinus.
== END 2021-10-14 12:33 | disposition home or self-care (01) ==
LOC: HO.CT 12:32
PROVIDERS: Visit Provider Internal Medicine Medical Oncology
DX: T85.09XA Other mechanical complication of ventricular intracranial (communicating) shunt, initial encounter (principal); Z98.2 Presence of cerebrospinal fluid drainage device
CPT/HCPCS: 70450

== ENCOUNTER 2022-01-01 11:45 | Outpatient (REF) | payer OTHER, SELFPAY ==
[2022-01-01 12:18] LABS: MANUAL DIFF FLAG NO
[2022-01-01 12:37] LABS: Basophils Percent Auto 0.4 % (0-2); Eosinophils Absolute Auto 0.1 X10*3/uL (0.0-0.4); Eosinophils Percent Auto 1.9 % (0-4); Hematocrit 40.8 % (42.0-52.0); Hemoglobin 13.1 g/dl (14.0-18.0); Imm Gran Abs Auto 0.02 X10*3/uL (0.00-0.03); Imm Gran Pct Auto 0.4 % (0.0-0.4); Lymphocytes Percent Auto 41.9 % (20-40); Mean Corpuscular HGB Conc 32.1 g/dl (31.0-36.0); Mean Corpuscular Hemoglobin 27.2 pg (27.0-33.0); Mean Corpuscular Volume 84.6 fL (80.0-98.0); Monocytes Absolute Auto 0.4 X10*3/uL (0.1-1.2); Monocytes Percent Auto 7.8 % (2-11); Neutrophils Absolute Auto 2.3 x10*3/uL (2.0-8.3); Neutrophils Percent Auto 47.6 % (45-73); Platelet Count 339 X10*3/uL (160-400); Red Blood Count 4.82 X10*6/uL (4.60-5.80); Red Cell Distribution Width 13.2 % (11.0-16.0); White Blood Count 4.7 X10*3/uL (4.8-10.8)
[2022-01-01 12:55] LABS: Alanine Aminotransferase 17 U/L (0-40); Albumin Level 4.6 g/dL (3.5-5.0); Alkaline Phosphatase 80 U/L (39-117); Anion Gap 16 (12-20); Aspartate Amino Transferase 20 U/L (5-37); Bilirubin Total 0.6 mg/dL (0.0-1.0); Blood Urea Nitrogen 13 mg/dL (9-16); Calcium 9.9 mg/dL (8.4-10.2); Carbon Dioxide 25 mmol/L (22-29); Chloride 101 mmol/L (96-108); Cholesterol 248 mg/dL; Estimated Glomerular Filt Rate > 60; Glucose Fasting 103 mg/dL (60-99); HDL Cholesterol 59 mg/dL; LDL Cholesterol Calculated 168 mg/dl; Sodium 137 mmol/L (135-145); Total Protein 7.9 g/dL (6.5-8.0); Triglycerides 107 mg/dL; Uric Acid 6.7 mg/dL (3.4-7.0)
[2022-01-03 13:56] LABS: Calcium (PTHI) 9.9 mg/dL (8.6-10.3); PTHI 69 pg/mL (16-77)
== END 2022-01-01 11:46 | disposition home or self-care (01) ==
LOC: HO.LAB 11:45
PROVIDERS: Visit Provider Internal Medicine Medical Oncology
DX: E78.2 Mixed hyperlipidemia (principal); T85.09XA Other mechanical complication of ventricular intracranial (communicating) shunt, initial encounter
CPT/HCPCS: 36415; 80053; 80061; 83970; 84550; 85025

== ENCOUNTER 2022-03-23 17:15 | Emergency (ER) | payer OTHER, SELFPAY ==
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
[2022-03-23 17:32] VITALS: BP 152/100; PULSE 103; O2SAT 99
[2022-03-23 20:19] VITALS: BP 105/80; PULSE 84; RESP 16; TEMP 36.2; O2SAT 99; BMI 27.8
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
[2022-03-23 22:27] VITALS: BP 134/94; PULSE 88; RESP 20; TEMP 36.9; O2SAT 99
[2022-03-23] MEDS: iohexoL 350 MG/ML 100 ML INFUS..BTL 85 ML IV (23:12)
[2022-03-24 00:04] VITALS: BP 129/84; PULSE 67; RESP 16; TEMP 36.7; O2SAT 99
== END 2022-03-24 00:07 | disposition home or self-care (01) ==
PROVIDERS: Emergency Provider Internal Medicine; PCP Internal Medicine Medical Oncology
DX: S13.4XXA Sprain of ligaments of cervical spine, initial encounter (principal); S39.012A Strain of muscle, fascia and tendon of lower back, initial encounter; S06.0XAA Concussion with loss of consciousness status unknown, initial encounter; M54.2 Cervicalgia; R51.9 Headache, unspecified; M25.551 Pain in right hip; F17.210 Nicotine dependence, cigarettes, uncomplicated; V03.10XA Pedestrian on foot injured in collision with car, pick-up truck or van in traffic accident, initial encounter; Y93.9 Activity, unspecified; Y92.410 Unspecified street and highway as the place of occurrence of the external cause; Y99.9 Unspecified external cause status; Z71.6 Tobacco abuse counseling; Z79.899 Other long term (current) drug therapy
CPT/HCPCS: 70450; 71260; 72125; 73502; 74177; 99284; Q9967

== ENCOUNTER 2022-07-05 15:30 | Outpatient (REF) | payer OTHER, SELFPAY ==
--- NOTE | ~2022-07-05 | XR_ITS ---
EXAMINATION: XR LUMBAR SPINE XR PELVIS CLINICAL INDICATION: Fell on stairs with low back and pelvic pain. COMPARISON: CT chest, abdomen and pelvis 03/23/2022, lumbar spine 11/11/2020. TECHNIQUE: 5 views lumbosacral spine, single view pelvis. FINDINGS: The distal end of what is most likely a RESEARCH AND DEVELOPMENT TECHNICIAN shunt is present with its tip just entering the peritoneal cavity for a short distance. Lumbar disc spaces are well preserved. Vertebral body heights are well preserved. No fractures or subluxations are seen. Facet joints appear normal. Single view of the pelvis shows no significant abnormality or fracture. XR/XR pelvis 1-2V IMPRESSION: No evidence of an acute traumatic injury involving the lumbosacral spine or pelvis.
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
== END 2022-07-05 15:31 | disposition home or self-care (01) ==
LOC: HO.XRAY 15:30
PROVIDERS: PCP Internal Medicine Medical Oncology; Visit Provider Internal Medicine Medical Oncology
DX: R10.2 Pelvic and perineal pain (principal); M54.50 Low back pain, unspecified; Z91.81 History of falling
CPT/HCPCS: 72110; 72170

== ENCOUNTER 2022-12-16 10:20 | Emergency (ER) | payer OTHER, SELFPAY ==
[2022-12-16 11:02] VITALS: BP 111/83; PULSE 76; RESP 18; TEMP 37.2; O2SAT 98; BMI 26.2
--- NOTE | 2022-12-16 11:04 | ED.GENADULT ---
HPI - General Adult General Chief complaint: Fever Stated complaint: headache fever Time Seen by Provider: 12/16/22 12:12 Source: patient, RN notes reviewed and old records reviewed Mode of arrival: ambulatory Limitations: no limitations History of Present Illness HPI narrative: 42-year-old male presents for evaluation of fever, headache, body aches x2 days. Patient denies any known sick contacts He has not used any Motrin/Tylenol for the pain The patient is not vaccinated for COVID-19 Denies any chest pain, shortness of breath Related Data Previous Rx's Medication Instructions Recorded hydrocortisone acetate 25 mg 25 mg VT BEDTIME #12 ea 01/05/21 rectal suppository lidocaine 5 % topical cream 1 appl topical BID PRN pain #30 01/05/21 (Hemorrhoidal Relief) grams ibuprofen 600 mg tablet 600 mg PO Q6H PRN pain #30 tabs 02/10/21 oxycodone-acetaminophen 5 mg-325 1 tab PO Q4-6H PRN pain #30 tabs 02/10/21 mg tablet (Percocet) docusate sodium 100 mg capsule 100 mg PO BID #60 caps 02/11/21 (Colace) acetaminophen 500 mg tablet 1,000 mg PO Q6H PRN pain #30 tabs 06/16/21 (Acetaminophen Extra Strength) cyclobenzaprine 10 mg tablet 10 mg PO TID PRN muscle pain or 06/16/21 spasm #20 tabs cyclobenzaprine 10 mg tablet 10 mg PO TID PRN muscle spasm #20 03/24/22 tabs Allergies Allergy/AdvReac Type Severity Reaction Status Date / Time amoxicillin [AMOXICILLIN] Allergy Intermediate HIVES Verified 12/16/22 11:02 ibuprofen [IBUPROFEN] Allergy Intermediate HIVES Verified 12/16/22 11:02 Review of Systems Constitutional: Constitutional: Reports chills, Reports fever(s), Reports headache(s) and Reports malaise ENT: Reports headache(s) and Denies sore throat Cardiovascular: Cardiovascular: Denies dyspnea Respiratory: Respiratory: Denies cough and Denies dyspnea Gastrointestinal: Gastrointestinal: Denies abdominal pain, Denies nausea and Denies vomiting Musculoskeletal: Musculoskeletal: Denies back pain Integumentary/Breasts: Skin/Breast: Denies rash Neurologic: Reports headache(s) PMFSH Past Medical History Medical History Bleeding hemorrhoids History of MRSA infection Hydrocephalus Hydrocephalus Surgical History History of creation of ventriculoperitoneal shunt History of hemorrhoidectomy Social History Social History Are you a primary care management associate to a significant other at home: No Do you presently have visiting nurse or other home services: No Alcohol intake: current Alcohol intake frequency: other Alcohol type: beer and hard liquor Patient Tobacco Use Status: Never used Tobacco Tobacco use type: Cigarette Cigarettes Per Day: 5 Substance Use Type: Crack/Cocaine Advance Directives: No Physical Exam ED Vital Signs: Vital Signs - 24 hr 12/16/22 11:02 Temperature 98.9 F Pulse Rate 76 Respiratory Rate 18 Blood Pressure 111/83 Pulse Oximetry 98 Oxygen Delivery Method Room Air BMI result Body Mass Index 26.2 Const General: healthy appearing, comfortable, no acute distress, alert and awake Nutritional Appearance: well nourished Orientation/consciousness: patient oriented x3 HENMT Head: Yes normocephalic and Yes atraumatic Eyes Eyelids: Yes eyelids normal Conjunctivae: conjunctivae normal Sclerae: sclerae normal Corneas: corneas normal Pupils: Equal, round and reactive pupils present EOM: EOMs intact bilaterally Neck Neck: Yes full ROM Resp Effort & Inspection: normal respiratory effort, able to speak in complete sentences, no audible wheezes and not labored Auscultation: clear to auscultation bilaterally Neuro General: patient oriented x3 Cranial nerves: Yes Equal, round and reactive pupils present and Yes Bilaterally intact EOM present Cognition (Neuro): normal cognition Extrem Other: Moving all extremities well without any obvious deformities Course Course Course Narrative: RME- 42-year-old male presents for evaluation of fevers, headache. He is afebrile in triage. Plan for COVID swab. He is well-appearing Medical Decision Making Medical Decision Making MDM Narrative: 42-year-old male presents for evaluation of fevers, body aches. He tested positive for COVID-19, he is still vital signs, denies any shortness of breath, chest pain. Symptomatic treatment only. Discussed this at length the patient Differential Diagnosis Differential Diagnoses: The differential diagnosis associated with the presentation includes Viral syndrome COVID-19 upper respiratory infection Acute headache Lab Data Labs: Lab Results 12/16/22 Range/Units 11:38 COVID-19 (LE) Positive A (Negative) COVID-19 Clin Com See Note Discharge Plan Discharge Clinical Impression: COVID-19 Patient Disposition: Home, Self-Care Instructions: COVID-19 (Coronavirus Disease 2019) (ED) Additional Instructions: You tested positive for COVID-19. You may use Motrin/Tylenol for headache, body aches You should self isolate for the next 5 days Prescriptions: No Action docusate sodium [Colace] 100 mg capsule 100 mg PO BID Qty: 60 2RF lidocaine [Hemorrhoidal Relief] 5 % cream 1 appl topical BID PRN (Reason: pain) Qty: 30 0RF hydrocortisone acetate 25 mg suppository 25 mg VT BEDTIME Qty: 12 0RF ibuprofen 600 mg tablet 600 mg PO Q6H PRN (Reason: pain) Qty: 30 0RF oxycodone-acetaminophen [Percocet] 5-325 mg tablet 1 tab PO Q4-6H PRN (Reason: pain) Qty: 30 0RF cyclobenzaprine 10 mg tablet 10 mg PO TID PRN (Reason: muscle pain or spasm) Qty: 20 0RF acetaminophen [Acetaminophen Extra Strength] 500 mg tablet 1,000 mg PO Q6H PRN (Reason: pain) Qty: 30 0RF cyclobenzaprine 10 mg tablet 10 mg PO TID PRN (Reason: muscle spasm) Qty: 20 0RF Stand Alone Forms: Work/School Release
--- OUTSIDE RECORDS SUMMARY | 2022-12-16 11:40 | XMS_ITS | Continuity of Care Document ---
Author Name Unknown Organization [facility] Address [address] [place] [address] [address], [address] [place] [address]- Care Team Providers Care Medical Practice Administrator Name Role Phone Not on Staff, PCP Primary Care Physician Unavail able [place] [facility] [place] [facility] [address] [place] [address] Drive, [address] [place], [place] [address] Allergies, Adverse Reactions, Alerts Substance Reaction Severity Status amoxicillin Active Motrin Active Medications doxycycline hyclate 100 mg oral tablet 1 tablet = 100 mg, By Mouth, 2 times a day, # 20 tablet, 0 Refills, Maintenance, Tablet Start Date: 04/17/12 Stop Date: 04/27/12 Status: Ordered oxycodone 5 mg oral capsule See Instructions, PRN Pain, 1-2 tablest at night for pain, # 10 capsule, 0 Refills, Maintenance, Capsule Start Date: 04/17/12 Status: Ordered
--- OUTSIDE RECORDS SUMMARY | 2022-12-16 11:40 | XMS_ITS | Continuity of Care Document ---
Author Name Unknown Organization [facility] Address [address] [place] [address]- Care Team Providers Care Steam Fitter Helper Name Role Phone Not on Staff, PCP Primary Care Physician Unavail able Encounter [facility] [place] Date(s): 06/16/21 - 06/16/[address] [address]- Encounter Diagnosis S/P COLLET GLUER shunt(Final) - 06/16/21 Discharge Disposition: A-D/C AMA Attending Physician: Bonilla Crouch MD Admitting Physician: Bonilla Crouch MD Referring Physician: Not on Staff, Referring MD Allergies, Adverse Reactions, Alerts Substance Reaction Severity [...] Maintenance, Capsule Start Date: 04/17/12 Status: Ordered Vital Signs Most recent to oldest [Reference Range]: 1 2 3 Height 155 cm (06/16/21 11:56 AM) 155 cm (06/16/21 11:26 AM) Weight 62.1 kg (06/16/21 11:56 AM) 62.1 kg (06/16/21 11:26 AM) Oxygen Saturation [94-100 %] 99 % (06/16/21 11:26 AM) 100 % (06/16/21 11:23 AM) Pulse Rate [55-90 bpm] 123 bpm *H* (06/16/21 11:56 AM) 127 bpm 1 *H* (06/16/21 11:26 AM) 145 bpm *H* (06/16/21 11:23 AM) Body Mass Index [18.5-24.99] 25.85 *H* (06/16/21 11: AM) Blood Pressure [90-138/55-84 mm Hg] 179/103mm Hg *H* (06/16/21 11:56 AM) 182/112mm Hg *H* (06/16/21 11: AM) Respiratory Rate [16-30 br/min] 16 br/min (06/16/21 11: AM) Temperature [96.8-100.4 DegF] 98.7 DegF (06/16/21 11: AM) Mode of Delivery (Oxygen) Room air (06/16/21 11:26 AM) Room air (06/16/21 11:23 AM) Blood pressure sites Arm, right (06/16/21 11:56 AM) Arm, right (06/16/21 11: AM) Temperature Route Oral (06/16/21 11: AM) Dry Weight 62.1 kg (06/16/21 11:56 AM) 62.1 kg (06/16/21 11:26 AM) Weight Obtained Via Standing scale (06/16/21 11:26 AM) Dry Weight Obtained Via Standing scale (06/16/21 11:26 AM) 1Result Comment: Cassandra CORTEZ aware of pulse
--- OUTSIDE RECORDS SUMMARY | 2022-12-16 11:40 | XMS_ITS | Continuity of Care Document ---
Author Name Unknown Organization [facility] Address [address] [place] [address] [address], [address] [place] [address]- Care Team Providers Care Stamp Pad Maker Name Role Phone Not on Staff, PCP Primary Care Physician Unavail able En[place] [facility] [place]s): 10/01/21 - 10/31/21 [facility] [address] [place] [address] Drive, [address] [place], [place] [address] Allergies, Adverse Reactions, Alerts Substance Reaction Severity [...]
--- OUTSIDE RECORDS SUMMARY | 2022-12-16 11:41 | XMS_ITS | Continuity of Care Document ---
Author Name Unknown Organization [facility] [place] Address [address] [place] [address]- Care Team Providers Care Deli Associate Name Role Phone Not on Staff, PCP Primary Care Physician Unavail able Encounter [facility] NBR [id number] Date(s): 06/16/21 - 08/21/21 [facility] [place] [address] [place] [address]- Attending Physician: To Rivera Allergies, Adverse Reactions, Alerts Substance Reaction Severity [...]
--- OUTSIDE RECORDS SUMMARY | 2022-12-16 11:41 | XMS_ITS | Continuity of Care Document ---
Author Name Unknown Organization [facility] [place] Address [address] [place] [address]- Care Team Providers Care Scanner Operator Name Role Phone Not on Staff, PCP Primary Care Physician Unavail able Encounter [facility] N[facility] [id number] Date(s): 07/22/21 - 08/21/21 [facility] [place] [address] [place] [address]- Attending Physician: Felipa Becker Admitting Physician: Felipa Becker Referring Physician: AdmtrFelipa Allergies, Adverse Reactions, Alerts Substance Reaction Severity [...]
--- OUTSIDE RECORDS SUMMARY | 2022-12-16 11:41 | XMS_ITS | Continuity of Care Document ---
Author Name Unknown Organization [facility] [place] Address [address] [place] [address]- Care Team Providers Care Memorial Adviser Name Role Phone Not on Staff, PCP Primary Care Physician Unavail able Encounter [facility] [place] Date(s): 06/16/21 - 07/16/21 [facility] [place] [address] [place] [address]- Allergies, Adverse Reactions, Alerts Substance Reaction Severity [...]
[2022-12-16 12:02] LABS: COVID-19 Test Positive (Negative); IDNOW Serial# BCCEAD1C
== END 2022-12-16 12:17 | disposition home or self-care (01) ==
PROVIDERS: Physician Assistant; Emergency Provider Emergency Medicine; PCP Internal Medicine Medical Oncology
DX: U07.1 COVID-19 (principal); R50.9 Fever, unspecified
CPT/HCPCS: 87635; 99282; 99283

== ENCOUNTER 2023-01-07 08:57 | Emergency (ER) | payer OTHER, SELFPAY ==
[2023-01-07 09:11] VITALS: BP 116/86; PULSE 80; RESP 16; TEMP 36.3; O2SAT 97; BMI 36.0
[2023-01-07 09:48] LABS: IDNOW Serial# 08D9AD1C; Strep A Nucleic Acid Positive (Negative)
[2023-01-07 10:07] LABS: COVID-19 Test Negative (Negative); IDNOW Serial# BCCEAD1C
--- NOTE | 2023-01-07 10:21 | ED.GENADULT ---
HPI - General Adult General Chief complaint: Upper Respiratory Symptoms Stated complaint: sore throat/ cant eat Time Seen by Provider: 01/07/23 09:59 Source: patient Mode of arrival: ambulatory Limitations: no limitations History of Present Illness HPI narrative: 42 yold male presents to the ED for sore throat, fever, and headache for 4 days. patient states no coughing, chest pain, or shortness of breath. Denies any trouble swallowing liquids or eating food. Patient denies any rash Related Data Previous Rx's Medication Instructions Recorded hydrocortisone acetate 25 mg 25 mg [place] BEDTIME #12 ea 01/05/21 rectal suppository lidocaine 5 % topical cream 1 appl topical BID PRN pain #30 01/05/21 (Hemorrhoidal Relief) grams ibuprofen 600 mg tablet 600 mg PO Q6H PRN pain #30 tabs 02/10/21 oxycodone-acetaminophen 5 mg-325 1 tab PO Q4-6H PRN pain #30 tabs 02/10/21 mg tablet (Percocet) docusate sodium 100 mg capsule 100 mg PO BID #60 caps 02/11/21 (Colace) acetaminophen 500 mg tablet 1,000 mg (2 x 500 mg) PO Q6H PRN 06/16/21 (Acetaminophen Extra Strength) pain #30 tabs cyclobenzaprine 10 mg tablet 10 mg PO TID PRN muscle pain or 06/16/21 spasm #20 tabs cyclobenzaprine 10 mg tablet 10 mg PO TID PRN muscle spasm #20 03/24/22 tabs cephalexin 500 mg capsule 500 mg PO QID 7 days #28 caps 01/07/23 Allergies Allergy/AdvReac Type Severity Reaction Status Date / Time amoxicillin [AMOXICILLIN] Allergy Intermediate HIVES Verified 12/16/22 11:02 ibuprofen [IBUPROFEN] Allergy Intermediate HIVES Verified 12/16/22 11:02 Review of Systems Review of Systems: sore throat headache chills fever Yes all other systems are reviewed and are negative PMFSH Past Medical History Medical History Bleeding hemorrhoids History of MRSA infection Hydrocephalus Hydrocephalus Surgical History History of creation of ventriculoperitoneal shunt History of hemorrhoidectomy Social History Social History Are you a primary palliative care nurse practitioner to a significant other at home: No Do you presently have visiting nurse or other home services: No Alcohol intake: current Alcohol intake frequency: holidays/special occasions only Alcohol type: beer and hard liquor Patient Tobacco Use Status: Never used Tobacco Tobacco use type: Cigarette Cigarettes Per Day: 5 Smoked in Last 30 Days: Yes Use of substances other than those prescribed or required for medical reasons: No Substance Use Type: Crack/Cocaine Advance Directives: No Advance Directives Information Provided: No Physical Exam ED Vital Signs: Vital Signs - 24 hr 01/07/23 09:11 Temperature 97.4 F Pulse Rate 80 Respiratory Rate 16 Blood Pressure 116/86 Pulse Oximetry 97 Oxygen Delivery Method Room Air BMI result Body Mass Index 36.0 Const General: cooperative, healthy appearing, comfortable, no acute distress, well developed, alert and awake Orientation/consciousness: oriented to person, oriented to place, oriented to time and patient oriented x3 HENMT Other: Negative for signs of Pertionsillar Abscess Head: Yes normal to inspection, Yes No palpable skull fracture present, Yes normocephalic, Yes atraumatic and No abrasion Throat: Yes posterior oropharynx normal, Yes uvula midline and Yes abnormal tonsil ( slightly erythematous) Eyes General: appearance normal, both eyes and all related structures Neck Neck: Yes normal visual inspection, Yes full ROM, Yes no lymphadenopathy, Yes no meningeal signs, Yes trachea midline, Yes supple, No anterior neck swelling and No tender Chest Chest palpation & inspection: normal inspection of the chest and normal palpation of entire chest wall Resp Effort & Inspection: normal respiratory effort and able to speak in complete sentences Auscultation: clear to auscultation bilaterally Cardio Jugular venous distension: no JVD Heart sounds: S1 normal heart sound present and S2 normal heart sound present GI Inspection: Yes normal to inspection and No abdominal wall ecchymosis Palpation (GI): Soft to palpation, not firm, nontender, no guarding and not rigid General: No CVA tenderness and Yes no CVA tenderness Back/Spine/Pelvis Back: no CVA tenderness, No CVA tenderness and No back tenderness Skin General skin exam: no rashes or lesions noted, elasticity normal and turgor normal Neuro General: oriented to person, oriented to place, oriented to time, patient oriented x3, gait normal, tone normal, moves all extremities, Normal light touch and pain sensation, no meningeal signs, no focal motor deficits, CN's II-XI intact bilaterally and normal sensation to monofilament Extrem General: Yes normal to inspection and Yes full ROM Psych Appearance: grossly normal, well kempt and not disheveled Medical Decision Making Medical Decision Making [facility] Narrative: 42-year-old male presents to ED for sore throat, headache, fever, chills, and night sweats. Patient denies any trouble swallowing liquids or food. Patient denies any drooling, change in voice, chest pain, shortness of breath. COVID swab negative. Strep test positive. Patient will be discharged with antibiotics. negative for signs of peritonsillar abscess Differential Diagnosis Differential Diagnoses: The differential diagnosis associated with the presentation includes ( COVID, influenza, strep, peritonsillar abscess,) Lab Data [facility] Lab Attestation statement: I reviewed the patient's lab results. Labs: Lab Results 01/07/23 Range/Units 09:18 COVID-19 (LE) Negative (Negative) COVID-19 Clin Com See Note S. pyogenes GrpA MIRTA Positive A (Negative) Prescription Management I considered prescription management with: Pain Medication and Antibiotic Discharge Plan Discharge Clinical Impression: Strep tonsillitis Patient Disposition: Home, Self-Care Instructions: Strep Throat (DC) Additional Instructions: return to the ED immediately for any drooling, change in voice, inability tolerate solid foods/liquids, intractable fever, chest pain, shortness of breath, neck swelling, worsening throat pain, or any other concerning symptoms. Please follow-up with your primary care provider. Prescriptions: New cephalexin 500 mg capsule 500 mg PO QID 7 Days Qty: 28 0RF No Action docusate sodium [Colace] 100 mg capsule 100 mg PO BID Qty: 60 2RF lidocaine [Hemorrhoidal Relief] 5 % cream 1 appl topical BID PRN (Reason: pain) Qty: 30 0RF hydrocortisone acetate 25 mg suppository 25 mg HI BEDTIME Qty: 12 0RF ibuprofen 600 mg tablet 600 mg PO Q6H PRN (Reason: pain) Qty: 30 0RF oxycodone-acetaminophen [Percocet] 5-325 mg tablet 1 tab PO Q4-6H PRN (Reason: pain) Qty: 30 0RF cyclobenzaprine 10 mg tablet 10 mg PO TID PRN (Reason: muscle pain or spasm) Qty: 20 0RF acetaminophen [Acetaminophen Extra Strength] 500 mg tablet 1,000 mg PO Q6H PRN (Reason: pain) Qty: 30 0RF cyclobenzaprine 10 mg tablet 10 mg PO TID PRN (Reason: muscle spasm) Qty: 20 0RF Stand Alone Forms: Work/School Release Interventions: ED Discharge Assessment Last Done: 01/07/23 10:41 Discharge Date/Time: 01/07/23 10:41 Print Language: Serbian
[2023-01-07 10:35] VITALS: BP 132/98; PULSE 82; RESP 18; O2SAT 99
== END 2023-01-07 10:41 | disposition home or self-care (01) ==
PROVIDERS: Emergency Provider Emergency Medicine Emergency Medical Services; PCP Internal Medicine Medical Oncology
DX: J02.0 Streptococcal pharyngitis (principal); Z20.822 Contact with and (suspected) exposure to COVID-19; F17.210 Nicotine dependence, cigarettes, uncomplicated
CPT/HCPCS: 87635; 87651; 99283; 99284

== ENCOUNTER 2023-02-22 16:51 | Outpatient (REF) | payer OTHER, SELFPAY ==
[2023-02-23 01:24] LABS: CT PCR NOT DETECTED (Not Detect.); NG PCR NOT DETECTED (Not Detect.)
[2023-02-25 11:09] LABS: Trichomonas vag. RNA Ur Male NOT DETECTED (NOT DETECTED)
== END 2023-02-22 16:52 | disposition home or self-care (01) ==
LOC: HO.LNP 16:51
PROVIDERS: Visit Provider Internal Medicine Medical Oncology
DX: Z11.3 Encounter for screening for infections with a predominantly sexual mode of transmission (principal)
CPT/HCPCS: 0353U; 87661

== ENCOUNTER 2023-02-25 15:22 | Outpatient (REF) | payer OTHER, SELFPAY ==
[2023-02-28 04:06] LABS: Syphilis Screen Nonreactive (Nonreactive)
[2023-02-28 04:14] LABS: HIV AB/AG Nonreactive (Nonreactive); HIV Num 1 0.06 S/CO (0.00-0.99)
== END 2023-02-25 15:23 | disposition home or self-care (01) ==
LOC: HO.LAB 15:22
PROVIDERS: PCP Internal Medicine Medical Oncology; Visit Provider Internal Medicine Medical Oncology
DX: Z11.3 Encounter for screening for infections with a predominantly sexual mode of transmission (principal)
CPT/HCPCS: 36415; 86780; 87389

== ENCOUNTER 2023-05-27 13:25 | Outpatient (REF) | payer OTHER, SELFPAY ==
--- NOTE | 2023-05-27 13:30 | ECG_ITS ---
Test Reason : Z01.818 Blood Pressure : / mmHG Vent. Rate : 080 BPM Atrial Rate : 080 BPM P-R Int : 114 ms QRS Dur : 086 ms QT Int : 344 ms P-R-T Axes : 066 037 -37 degrees QTc Int : 396 ms Normal sinus rhythm T wave abnormality, consider inferior ischemia T wave abnormality, consider anterolateral ischemia Abnormal ECG No previous ECGs available Referred By: Jose Garduno Electronically Signed By:JALEESA SADLER MD
[2023-05-27 13:38] LABS: MANUAL DIFF FLAG NO
[2023-05-27 14:05] LABS: Basophils Percent Auto 0.4 % (0-2); Eosinophils Absolute Auto 0.1 X10*3/uL (0.0-0.4); Eosinophils Percent Auto 0.9 % (0-4); Hematocrit 40.7 % (42.0-52.0); Hemoglobin 13.3 g/dl (14.0-18.0); Imm Gran Abs Auto 0.02 X10*3/uL (0.00-0.03); Imm Gran Pct Auto 0.4 % (0.0-0.4); Lymphocytes Absolute Auto 2.8 X10*3/uL (1.2-4.9); Lymphocytes Percent Auto 53.3 % (20-40); Mean Corpuscular HGB Conc 32.7 g/dl (31.0-36.0); Mean Corpuscular Hemoglobin 27.4 pg (27.0-33.0); Mean Corpuscular Volume 83.9 fL (80.0-98.0); Mean Platelet Volume 9.8 fL (9.4-12.4); Monocytes Absolute Auto 0.5 X10*3/uL (0.1-1.2); Monocytes Percent Auto 8.8 % (2-11); Neutrophils Absolute Auto 1.9 x10*3/uL (2.0-8.3); Neutrophils Percent Auto 36.2 % (45-73); Platelet Count 345 X10*3/uL (160-400); Red Blood Count 4.85 X10*6/uL (4.60-5.80); Red Cell Distribution Width 13.2 % (11.0-16.0); White Blood Count 5.3 X10*3/uL (4.8-10.8)
[2023-05-27 14:16] LABS: Prothrombin Time 11.8 SEC (11.1-13.3)
[2023-05-27 15:06] LABS: Alanine Aminotransferase 17 U/L (0-40); Albumin Level 4.6 g/dL (3.5-5.0); Alkaline Phosphatase 78 U/L (39-117); Anion Gap 13 (12-20); Aspartate Amino Transferase 21 U/L (5-37); Bilirubin Total 0.9 mg/dL (0.0-1.0); Blood Urea Nitrogen 16 mg/dL (9-16); Calcium 9.8 mg/dL (8.4-10.2); Carbon Dioxide 27 mmol/L (22-29); Chloride 97 mmol/L (96-108); Estimated Glomerular Filt Rate > 60; Glucose Random 112 mg/dL (60-115); Potassium 4.1 mmol/L (3.3-5.1); Sodium 133 mmol/L (135-145)
== END 2023-05-27 13:26 | disposition home or self-care (01) ==
LOC: HO.LAB 13:25
PROVIDERS: PCP Internal Medicine Medical Oncology; Visit Provider Internal Medicine Medical Oncology
DX: Z01.818 Encounter for other preprocedural examination (principal); E78.2 Mixed hyperlipidemia; E66.3 Overweight
CPT/HCPCS: 36415; 80053; 85025; 85610; 93005

== ENCOUNTER → 2023-05-27 13:30 | Outpatient (BNV) | payer OTHER, SELFPAY | PROVIDERS: PCP Internal Medicine Medical Oncology; Visit Provider Internal Medicine Cardiovascular Disease | DX: R94.31 Abnormal electrocardiogram [ECG] [EKG] (principal); Z01.818 Encounter for other preprocedural examination | CPT/HCPCS: 93010 ==

== ENCOUNTER → 2023-09-01 10:31 | Outpatient (REF) | payer OTHER, SELFPAY ==
--- NOTE | 2023-09-01 10:43 | CA_ITS ---
Acquisition Time: 2023-09-01 10:31:48 Total Exercise Time: 00:10:16 Test Indications: ABN EKG Medications: SEE H Protocol: MESSI Max HR: 153 BPM 85% of Pred: 178 BPM Max BP: 174/060 mmHG Max Work Load: 12.1 METS Exercise stress test exercise 10 min 16 sec of Messi protocol achieving 85% MPHR, without anginal symptoms, without arrhythmais, with normotenisve response to exercise, with T wave inversion V3-V6 from baseline T wave inversion in leads 2, 3, aVF, Test reviewed with Dr. Camacho. Referred By: Jose Garduno Overread By: Namita Wise
== END ==
LOC: HO.CARD 10:31
PROVIDERS: PCP Internal Medicine Medical Oncology; Visit Provider Internal Medicine Medical Oncology
DX: I99.8 Other disorder of circulatory system (principal); R94.31 Abnormal electrocardiogram [ECG] [EKG]
CPT/HCPCS: 93017

== ENCOUNTER → 2023-09-01 10:43 | Outpatient (BNV) | payer OTHER, SELFPAY | PROVIDERS: PCP Internal Medicine Medical Oncology; Visit Provider Nurse Practitioner | DX: R94.31 Abnormal electrocardiogram [ECG] [EKG] (principal) | CPT/HCPCS: 93016; 93018 ==

== ENCOUNTER 2023-12-22 13:42 | Outpatient (AMB) | payer OTHER, SELFPAY ==
[2023-12-22 13:47] VITALS: BP 110/70; PULSE 74; BMI 35.8
--- NOTE | 2023-12-22 13:47 | MHC.OFFVIS ---
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 He is scheduled to undergo a wisdom tooth extraction under sedation. This is a low risk procedure. Patient recently in August underwent stress test for unclear reason probably for abnormal EKG, patient is unclear very performed a very high workload without any significant chest pain or shortness of breath or abnormal blood pressure response with nonspecific EKG changes. He continues to deny any cardiac symptoms. Denies any exertional chest pain or shortness of breath. He said he has no prior medical history or risk factors for cardiovascular disease. He said about a week ago his brother , questioning overdose. He is currently not on any medications. He said he socially smokes and drinks. He does not use any drugs. [facility] Medical History Hydrocephalus History of MRSA infection Hydrocephalus Bleeding hemorrhoids Surgical History History of hemorrhoidectomy History of creation of ventriculoperitoneal shunt Social History Are you a primary home care and home health aides teacher to a significant other at home: No Do you presently have visiting nurse or other home services: No Alcohol intake: current Alcohol intake frequency: holidays/special occasions only Alcohol type: beer and hard liquor Patient Tobacco Use Status: Never used Tobacco Tobacco use type: Cigarette Cigarettes Per Day: 5 Substance Use Type: Crack/Cocaine Review of Systems Const Denies chills, Denies daytime sleepiness, Denies fatigue, Denies fever(s), Denies frequent falls, Denies poor appetite, Denies snoring, Denies stops breathing during sleep, Denies weakness, Denies weight gain and Denies weight loss Eyes Denies loss of vision ENT Denies dizziness and Denies hearing loss Card Denies chest pain, Denies claudication, Denies leg edema, Denies lightheadedness, Denies palpitations, Denies dyspnea, Denies dyspnea on exertion and Denies orthopnea Resp Denies cough, Denies excessive phlegm production, Denies dyspnea, Denies dyspnea on exertion, Denies snoring and Denies wheezing GI Denies abdominal pain, Denies hematochezia, Denies change in bowel habits, Denies nausea and Denies vomiting Denies dysuria and Denies urinary frequency Musc Denies arthralgias, Denies muscle weakness, Denies numbness and Denies other (frequent falls) Skin/Breast Denies nail changes and Denies rash Neuro Denies Abnormal speech present, Denies dizziness, Denies frequent falls, Denies loss of vision, Denies memory loss, Denies numbness and Denies weakness Psych Denies depression and Denies memory loss Endo Denies fatigue and Denies palpitations Dimitri/Lymph Reports easy bruising and Reports other (anemia) Aller/Immun Denies wheezing Physical Exam Vital Signs: Last Vital Signs Pulse 74 12/22/23 13:47 BP 110/70 12/22/23 13:47 BMI result Body Mass Index 35.8 Const General: cooperative, comfortable, no acute distress, well developed, alert, awake and Physically active Nutritional Appearance: well nourished and overweight Orientation/consciousness: patient oriented x3 Limitations: no limitations HEENT Head: Yes normocephalic and Yes atraumatic Neck Neck: Yes trachea midline, Yes supple and Yes no JVD Resp Effort & Inspection: normal respiratory effort Auscultation: clear to auscultation bilaterally Cardio Jugular venous distension: no JVD Palpation: normal PMI Rate: regular rate Rhythm: regular rhythm Heart sounds: S1 normal heart sound present, S2 normal heart sound present, no click, no gallops and no murmurs GI Auscultation: normal bowel sounds Skin General skin exam: no rashes or lesions noted Neuro General: patient oriented x3 and no focal motor deficits Speech: No Abnormal speech present Extrem General: Yes no clubbing, cyanosis or edema Psych Appearance: grossly normal Office Procedures EKG Details: EKG shows normal sinus rhythm with moderate voltage criteria for LVH with inferior T-wave inversion [id number]-[id number], Complete Assessment & Plan Assessment & Plan (1) Preoperative cardiovascular examination: Code(s): Z01.810 - Encounter for preprocedural cardiovascular examination Plan: Preoperative cardiovascular risk stratification for wisdom teeth removal which is low risk surgery under sedation. Patient underwent a treadmill stress test performed high workload without any symptoms or significant changes suggestive of ischemia. At this point time he is currently optimized to undergo the procedure with low risk for perioperative cardiovascular morbidity mortality. (2) Abnormal EKG: Code(s): R94.31 - Abnormal electrocardiogram [ECG] [EKG] Category: Medical Plan: Baseline abnormal EKG could represent underlying hypertrophic cardiomyopathy. Would suggest an echocardiogram to assess for the same. Also had abnormal EKG response to exercise. Myocardial ischemia is less likely. Will perform a stress echocardiogram to evaluate and rule out completely any evidence of myocardial ischemia for prognostic purposes. This was discussed with him. He understands agrees. Further treatment based on the finding of the test results. Will follow up in the clinic if need be. Thank you for allowing me to partake in his care Coding Level of Care Code New Pt Level 4 (46337) Diagnoses Preoperative cardiovascular examination Z01.810 Abnormal EKG R94.31 CPT Codes EKG - CPT: 25251-[id number], Complete ([id number])
== END 2023-12-22 14:12 | disposition home or self-care (01) ==
PROVIDERS: PCP Internal Medicine Medical Oncology; Visit Provider Internal Medicine Cardiovascular Disease
DX: R94.31 Abnormal electrocardiogram [ECG] [EKG] (principal); Z01.810 Encounter for preprocedural cardiovascular examination
CPT/HCPCS: 93010; 99214

== ENCOUNTER → 2023-12-22 13:42 | Outpatient (BNVA) | payer OTHER, SELFPAY | PROVIDERS: PCP Internal Medicine Medical Oncology; Visit Provider Internal Medicine Cardiovascular Disease | DX: Z01.810 Encounter for preprocedural cardiovascular examination (principal); R94.31 Abnormal electrocardiogram [ECG] [EKG] | CPT/HCPCS: 93005; 99212 ==

== ENCOUNTER → 2024-02-08 15:03 | Outpatient (REF) | payer OTHER, SELFPAY ==
--- NOTE | 2024-02-08 15:06 | CA_ITS ---
Transthoracic Echocardiogram Patient (Last, First, Middle): Melo Alva L Gender: Male Date of : 1980 Age: 44 Procedure Date: 02/08/2024 Procedure Type: Transthoracic Echocardiogram Location: OP Height: 154.94 cm Weight: 64.41 kg BSA: 1.63 m2 Heart Rate: bpm BP: 110 / 84 mmHg Stem Frazer: OUMAR Referring MD: Ron Griffith MD Symptoms: R94.31 - Abnormal electrocardiogram [ECG] [EKG] Study Quality: Fair ECG Rhythm: Sinus Conclusions: - The left ventricular systolic function is normal. The calculated ejection fraction is 64% by biplane method. - No obvious valvular pathology seen on this study. Findings Left Ventricle Normal left ventricular cavity size. There is normal left ventricular wall thickness. The left ventricular systolic function is normal. The calculated ejection fraction is 64% by biplane method. There is no evidence of regional wall motion abnormalities. Diastolic function is normal for age. Right Ventricle Normal right ventricular cavity size and systolic function. Atria Both atria are normal in size. Aortic Valve There is a normal trileaflet aortic valve. There is no aortic valve stenosis. There is no aortic valve regurgitation. Mitral Valve The mitral valve appears normal. There is no mitral valve regurgitation. There is no mitral valve stenosis. Pulmonic Valve The pulmonic valve is likely normal. Tricuspid Valve Normal tricuspid valve structure. There is trace tricuspid valve regurgitation. There is no evidence of pulmonary hypertension. Great Vessels The asc aorta and aortic arch are normal in size. Venous The inferior vena cava was not well visualized. Pericardium/Pleural There is no evidence of pericardial effusion. Prior Study Comparison No prior study available for comparison. Recommendations, Care & Conclusions No obvious valvular pathology seen on this study. Measurements 2D Linear Measurements IVSd: 0.94 0.6-0.9/0.6-1.0 cm LVIDd: 4.44 3.9-5.3/4.2-5.9 cm LVIDd Index: 2.72 2.4-3.2/2.2-3.1 cm/m2 LVIDs: 2.93 2.0-3.6 cm LVPWd: 1.20 0.7-1.1 cm LA Diam: 2.60 2.7-3.8/3.0-4.0 cm LAIDs Index: 1.60 1.5-2.3 cm/m2 LV Mass: 205.80 67-162/88-224 g LV Mass Index: 126.26 43-95/49-115 g/m2 LVOT Diam: 2.10 3.0+(-)1.3 cm 2D Systolic Function EF 4C: 63.10 >55% EF 2C: 61.00 >55% EF BiP: 64.20 >55% Mitral Valve MV Pk E: 0.58 MV PK A: 0.57 MV Decel Time: 207.00 E/A: 1.00 E'Lateral: 6.74 E'Medial: 5.87 E/E' Med: 9.90 E/E' Lat: 8.60 PHT: 61.00 MVA PHT: 3.61 Decel Dodge: 2.82 Aortic Valve AoV Pk Lars: 1.16 AoV Mn Lars: 0.84 AoV VTI: 0.21 AoV Pk Grad: 5.00 Aov Mn Grad: 3.00 MAYDA Cont.VTI: 2.32 LVOT LVOT Pk Lars: 0.77 LVOT Mn Lars: 0.51 LVOT VTI: 0.14 LVOT Pk Grad: 2.00 LVOT Mn Grad: 1.00 LVOT Diam: 2.10 LVOT Area: 3.46 Diastolic Function MV Pk E: 0.58 MV Pk A: 0.57 E/A: 1.00 E'Medial: 5.87 E/E' Med: 9.90 E' Laterial: 6.74 E/E' Lat: 8.60 Right Ventricle TAPSE (mm): 19.10 TVS' Lars: 9.90 Great Vessels Aorta Sinus of Valsalva: 3.26 2.0-3.[address] Ridge: 2.42 1.7-3.4 cm Ao Asc: 2.90 2.1-3.4 cm Ao Arch: 2.60 Updated in Other Vendor System with Status of Final Asael Shipman MD electronically signed on 02/10/2024 8:57:26 AM with status of Final
== END ==
LOC: HO.CARD 15:03
PROVIDERS: PCP Internal Medicine Medical Oncology; Visit Provider Internal Medicine Cardiovascular Disease
DX: R94.31 Abnormal electrocardiogram [ECG] [EKG] (principal)
CPT/HCPCS: 93306

== ENCOUNTER → 2024-02-08 15:06 | Outpatient (BNV) | payer OTHER, SELFPAY | PROVIDERS: PCP Internal Medicine Medical Oncology; Visit Provider Internal Medicine | DX: R94.31 Abnormal electrocardiogram [ECG] [EKG] (principal) | CPT/HCPCS: 93306 ==

== ENCOUNTER 2024-02-22 11:45 | Outpatient (REF) | payer OTHER, SELFPAY ==
[2024-02-22 12:20] LABS: MANUAL DIFF FLAG NO
[2024-02-22 13:06] LABS: Basophils Percent Auto 0.3 % (0-2); Eosinophils Absolute Auto 0.1 X10*3/uL (0.0-0.4); Eosinophils Percent Auto 1.5 % (0-4); Hematocrit 43.7 % (42.0-52.0); Hemoglobin 14.2 g/dl (14.0-18.0); Imm Gran Abs Auto 0.01 X10*3/uL (0.00-0.03); Imm Gran Pct Auto 0.2 % (0.0-0.4); Lymphocytes Absolute Auto 2.7 X10*3/uL (1.2-4.9); Lymphocytes Percent Auto 45.1 % (20-40); Mean Corpuscular HGB Conc 32.5 g/dl (31.0-36.0); Monocytes Absolute Auto 0.4 X10*3/uL (0.1-1.2); Monocytes Percent Auto 6.5 % (2-11); Neutrophils Absolute Auto 2.8 x10*3/uL (2.0-8.3); Neutrophils Percent Auto 46.4 % (45-73); Platelet Count 379 X10*3/uL (160-400); Red Blood Count 5.08 X10*6/uL (4.60-5.80); Red Cell Distribution Width 12.6 % (11.0-16.0)
[2024-02-22 13:55] LABS: Alanine Aminotransferase 18 U/L (0-40); Albumin Level 4.6 g/dL (3.5-5.0); Alkaline Phosphatase 70 U/L (39-117); Anion Gap 14 (12-20); Aspartate Amino Transferase 25 U/L (5-37); Bilirubin Total 0.9 mg/dL (0.0-1.0); Blood Urea Nitrogen 12 mg/dL (9-16); Calcium 9.8 mg/dL (8.4-10.2); Carbon Dioxide 26 mmol/L (22-29); Chloride 101 mmol/L (96-108); Cholesterol 227 mg/dL (<200); Estimated Glomerular Filt Rate > 60; Glucose Random 93 mg/dL (60-115); HDL Cholesterol 62 mg/dL (>40); LDL Cholesterol Calculated 133 mg/dL (<100); Potassium 4.1 mmol/L (3.3-5.1); Sodium 137 mmol/L (135-145); Triglycerides 163 mg/dL (<150)
== END 2024-02-22 11:46 | disposition home or self-care (01) ==
LOC: HO.LAB 11:45
PROVIDERS: PCP Internal Medicine Medical Oncology; Visit Provider Internal Medicine Medical Oncology
DX: E66.3 Overweight (principal); E78.2 Mixed hyperlipidemia; N40.0 Benign prostatic hyperplasia without lower urinary tract symptoms
CPT/HCPCS: 36415; 80053; 80061; 84153; 85025

== ENCOUNTER → 2024-04-23 10:51 | Outpatient (REF) | payer OTHER, SELFPAY ==
--- NOTE | 2024-04-23 10:53 | CA_ITS ---
Acquisition Time: 2024-04-23 11:18:19 Total Exercise Time: 00:10:45 Test Indications: ABN ETT Medications: SEE H Protocol: MESSI Max HR: 162 BPM 91% of Pred: 177 BPM Max BP: 158/086 mmHG Max Work Load: 12.9 METS Exercise Stress Test with exercise 10 mins 45 secs of Messi Protocol, achieving 91% MPHR, without any anginal symptoms, without any arrythmias, with normotensive response to exercise. Without EKG changes meeting criteria for ischemia. Echo images were obtained by tech at rest and post peak exercise. Definity contrast used. Test reviewed with Dr. Griffith. Referred By: Ron Griffith Overread By: Kevin Bateman
== END ==
LOC: HO.CARD 10:51
PROVIDERS: PCP Internal Medicine Medical Oncology; Visit Provider Internal Medicine Cardiovascular Disease
DX: R94.31 Abnormal electrocardiogram [ECG] [EKG] (principal)
CPT/HCPCS: 93350; Q9957

== ENCOUNTER → 2024-04-23 10:53 | Outpatient (BNV) | payer OTHER, SELFPAY | PROVIDERS: PCP Internal Medicine Medical Oncology | DX: R94.31 Abnormal electrocardiogram [ECG] [EKG] (principal) | CPT/HCPCS: 93016; 93018; 93350; 93352 ==